=== PATIENT | female | born 1995 | race Caucasian/White ===

== ENCOUNTER 2019-09-16 01:49 | Observation (INO) | payer BC, SELFPAY ==
[2019-09-16 04:26] VITALS: BMI 32.1
--- NOTE | 2019-09-16 04:26 | LDADM ---
This patient, Ira Kamara, was admitted to Labor/Delivery/Recovery 105 on 09/16/19 at 01:49. Plans for labor, pain management and were discussed with patient. Patient/family oriented to hospital policies and general routines including ID bracelet, bed and alarms, visiting hours, pain management, procedures, bathroom and other care routines, personal items, smoking policy, room service/diet and guest tray routines, security routines, and visiting hours. Patient/Family are encouraged to report perceived risks to care and to ask questions if they do not understand what they are told or what they should do. See OBIX for further documentation.
--- NOTE | 2019-09-20 06:57 | PM.DS ---
DS: Diagnosis Admitting Diagnosis Admitting Diagnosis: term DS: Summary Time Spent with Patient Time attestation: Total time spent providing and/or coordinating discharge services: Exam Const: General: no acute distress Eyes: General: appearance normal, both eyes and all related structures Neck: Neck: supple and no JVD Thyroid: thyroid normal Resp: Effort & Inspection: normal respiratory effort Auscultation: clear to auscultation bilaterally Cardio: Rate: regular rate Rhythm: regular rhythm GI: Inspection: non-distended GI Palp: Yes Soft to palpation, No Tenderness to palpation present (GI) and No Guarding due to palpation present (GI) Auscultation: normal bowel sounds : General: Yes bladder normal to palpation External Female Exam: normal external appearance Speculum Exam - Vagina: normal vaginal discharge and No vaginal bleeding Speculum Exam - Cervix: nontender Bimanual exam- vagina & uterus: bladder normal to palpation and No Cervical tenderness present OB/external & speculum: No vaginal bleeding Skin: General skin exam: no rashes or lesions noted Extrem: General: normal to inspection and no edema Psych: Mental Status: mental status grossly normal Affect: normal affect Discharge Plan Discharge Attending physician on discharge: Panchito Nguyen Discharging Clinician: Panchito Nguyen Anticipated Discharge Date/Time: 09/16/19 04:45 Patient Disposition: Home, Self-Care Activity: as tolerated Diet: regular Discharge Instructions: OB ANTEPARTUM DISCHARGE INSTRUCTIONS This information is given to help you properly care for yourself at home after your discharge from the hospital. Follow these instructions until your doctor tells you otherwise. DIET: Eat Three Well Balanced Meals per Day Drink at Least Eight 8-Ounce Glasses of Caffeine-Free Beverages Daily Additional Diet Instructions: ACTIVITY: As Tolerated Additional Activity Instructions: RETURN TO LABOR AND DELIVERY IF YOU HAVE: Any Change In Baby's Normal Movement Pattern Any Leakage of Fluid Contractions 3-5 Minutes Apart with Increasing Intensity Additional Reasons to Return to Labor and Delivery: Contractions may feel like abdominal pain, tightening, cramping, pressure, back ache, or thigh ache. Valuables released to patient or family? N/A Medications from home returned to patient? N/A I Have Received Information Regarding Effective Home Pain Management I Acknowledge Receipt of and Understand the Above Instructions IF YOU HAVE ANY QUESTIONS REGARDING THESE INSTRUCTIONS, PLEASE CALL [phone]. IF PROBLEMS ARISE, CALL YOUR PROVIDER. IF EMERGENCY CARE IS NEEDED, [facility]S EMERGENCY ROOM IS AVAILABLE 24 HOURS A DAY. Patient Instructions: Antibiotic Form Stand Alone Forms: General Discharge Information Follow-up/Referrals: Panchito Nguyen MD [Physician] - Discharge Medications: Continued PNV cmb#95-ferrous fumarate-FA [] 28 mg iron- 800 mcg Tablet 1 tablet PO DAILY RF: 0 No Action hydrocodone-acetaminophen [[place]] 5-325 mg tablet 1 tablet PO Q4H PRN (Reason: pain) Qty: 30 RF: 0 Date of admission: 09/16/19 01:49 Primary Care Provider: UNKNOWN,DOCTOR Admitting Provider: Panchito Nguyen Discharge Date/Time: 09/16/19 04:40 Attending physician on admission: Panchito Nguyen
--- NOTE | 2019-10-17 13:03 | PM.OBTRLD ---
OB - Triage/Final Diagnosis Visit Information Date of evaluation: 10/11/19 Reason for evaluation: threatened labor
--- NOTE | 2019-10-17 13:28 | PM.IMHP ---
H&P: HPI History of Present Illness Chief complaint: contractions Narrative: Ira Acuan is a 24 year old female admitted at term in active labor. is uncomplicated. Review of Systems Review of Systems: All systems reviewed & are unremarkable except as noted in HPI and below PMFSH Family History Family History Mother Hypothyroidism Social History Social History Smoking packs per day: 0.5 Smoking cigarettes per day: 10.0 Years smoked: 6 Smoking pack-years: 3.00 Smoking status: Former smoker Tobacco type: cigarettes Substance use: never Gender identity (if verbalized by the patient): Female Spiritual care concerns: No Meds Home Medications and Allergies Home Medications Medication Instructions Recorded Confirmed Type PNV cmb#95-ferrous fumarate-FA 1 tablet PO DAILY 08/07/19 09/16/19 History [] hydrocodone-acetaminophen [[place]] 1 tablet PO Q4H PRN #30 tablet 09/17/19 Rx Allergies Allergy/AdvReac Type Severity Reaction Status Date / Time No Known Allergies Allergy Unknown Unverified 01/19/19 22:23 Exam Const: General: no acute distress Eyes: General: appearance normal, both eyes and all related structures Neck: Neck: supple and no JVD Thyroid: thyroid normal Resp: Effort & Inspection: normal respiratory effort Auscultation: clear to auscultation bilaterally Cardio: Rate: regular rate Rhythm: regular rhythm GI: Inspection: non-distended GI Palp: Yes Soft to palpation, No Tenderness to palpation present (GI) and No Guarding due to palpation present (GI) Auscultation: normal bowel sounds : General: Yes bladder normal to palpation External Female Exam: normal external appearance Speculum Exam - Vagina: normal vaginal discharge and No vaginal bleeding Speculum Exam - Cervix: nontender Bimanual exam- vagina & uterus: bladder normal to palpation and No Cervical tenderness present OB/external & speculum: No vaginal bleeding Skin: General skin exam: no rashes or lesions noted Extrem: General: normal to inspection and no edema Psych: Mental Status: mental status grossly normal Affect: normal affect Assessment and Plan Additional Plan Impression: Term in active labor Plan: Spontaneous vaginal is expected
== END 2019-09-16 04:40 | disposition home or self-care (01) ==
PROVIDERS: Admitting Provider Obstetrics & Gynecology; Visit Provider Obstetrics & Gynecology
DX: O47.1 False labor at or after 37 completed weeks of gestation (principal); Z3A.40 40 weeks gestation of pregnancy
CPT/HCPCS: G0378; G0379

== ENCOUNTER 2019-09-16 18:28 | Inpatient (IN) | payer BC, SELFPAY ==
[2019-09-16] VITALS (67 sets, daily range): BP systolic 91–144; BP diastolic 42–104; PULSE 64–105; TEMP 36.6–37.3; O2SAT 88–100; BMI 32.3
--- NOTE | 2019-09-16 18:28 | LDADM ---
This patient, Ira Kamara, was admitted to Labor/Delivery/Recovery 106 on 09/16/19 at 18:28. Plans for labor, pain management and were discussed with patient. Patient/family oriented to hospital policies and general routines including ID bracelet, bed and alarms, visiting hours, pain management, procedures, bathroom and other care routines, personal items, smoking policy, room service/diet and guest tray routines, security routines, and visiting hours. Patient/Family are encouraged to report perceived risks to care and to ask questions if they do not understand what they are told or what they should do. See OBIX for further documentation.
[2019-09-16 19:05] LABS: Basophils Percent Auto 0.3 % (0.2-1.2); Eosinophils Absolute Auto 0.2 K/mm3 (0-0.3); Eosinophils Percent Auto 1.5 % (0-4.4); Hematocrit 35.3 % (37.0-47.0); Hemoglobin 11.5 g/dL (12.0-15.0); Immature Granulocyte Absolute 0.28 K/mm3 (0.00-0.031); Lymphocytes Absolute Auto 2.87 K/mm3 (0.9-3.2); Mean Corpuscular HGB Conc 32.6 g/dl (32-36); Mean Corpuscular Hemoglobin 29.1 pg (26-34); Mean Corpuscular Volume 89.4 fl (80-100); Mean Platelet Volume 11.3 fl (7.4-10.4); Monocytes Absolute Auto 1.3 K/mm3 (0.1-0.6); Monocytes Percent Auto 8.9 % (2.6-8.5); Neutrophils Absolute Auto 9.7 K/mm3 (1.3-6.7); Neutrophils Percent Auto 67.3 % (45.5-73.1); Platelet Count Result 222 k/mm3 (150-375); Red Blood Count 3.95 M/mm3 (4.2-5.4); Red Cell Distribution Width 14.2 % (11.5-14.5); White Blood Count 14.3 K/mm3 (4.5-10.0)
[2019-09-16] MEDS: LACTATED RINGERS 1,000 ML 999 ML IV CONT (20:43)
[2019-09-16] MEDS: LACTATED RINGERS 1,000 ML 125 ML IV CONT ×2 (21:02→23:42)
--- NOTE | 2019-09-16 21:03 | P.PNAN_ITS ---
Anes - Eval Pre Procedure Procedure: Labor epidural Date/Time: 09/16/19 21:03 Surgeon: Jam Preop Diagnosis: ABD pain with contractions Pre Op Diagnosis: leaking Patient Data Age: 24 Gender: F Height: 5 ft 1 in Weight: 77.5 kg Last Vital Signs Temp 98.9 F 09/16/19 20:48 Pulse 85 09/16/19 21:01 BP 130/104 H 09/16/19 21:01 Pulse Ox 97 09/16/19 21:01 Allergies Allergy/AdvReac Type Severity Reaction Status Date / Time No Known Allergies Allergy Unknown Unverified 01/19/19 22:23 Home Medications Medication Instructions Recorded Confirmed Type PNV cmb#95-ferrous fumarate-FA 1 tablet PO DAILY 08/07/19 09/16/19 History [] Laboratory Tests 09/16/19 09/16/19 09/16/19 19:00 19:00 19:00 WBC 14.3 K/mm3 H K/mm3 (4.5-10.0) RBC 3.95 M/mm3 L M/mm3 (4.2-5.4) Hgb 11.5 g/dL L g/dL (12.0-15.0) Hct 35.3 % L % (37.0-47.0) MCV 89.4 fl fl (80-100) MCH 29.1 pg pg (26-34) MCHC 32.6 g/dl g/dl (32-36) RDW 14.2 % % (11.5-14.5) Plt Count 222 k/mm3 k/mm3 (150-375) MPV 11.3 fl H fl (7.4-10.4) Immature Gran % (Auto) 2.0 % H % (0-0.5) Neut % (Auto) 67.3 % % (45.5-73.1) Lymph % (Auto) 20.0 % % (18.3-44.2) [place] % (Auto) 8.9 % H % (2.6-8.5) Eos % (Auto) 1.5 % % (0-4.4) Baso % (Auto) 0.3 % % (0.2-1.2) Lymph # (Auto) 2.87 K/mm3 K/mm3 (0.9-3.2) [place] # (Auto) 1.3 K/mm3 H K/mm3 (0.1-0.6) Eos # (Auto) 0.2 K/mm3 K/mm3 (0-0.3) Baso # (Auto) 0.0 K/mm3 K/mm3 (0.0-0.1) Abs Immat Gran (auto) 0.28 K/mm3 H K/mm3 (0.00-0.031) Absolute Neuts (auto) 9.7 K/mm3 H K/mm3 (1.3-6.7) Absolute Nucleated RBC 0.0 K/mm3 K/mm3 (0.0-0.012) Nucleated RBC % 0.0 % % (0.0-0.2) RPR Pending Blood Type O Positive Antibody Screen Negative Patient hx anesthesia problems: none Family hx anesthesia problems: none PMFSH Family History Family History Mother Hypothyroidism Social History Social History Smoking packs per day: 0.5 Smoking cigarettes per day: 10.0 Years smoked: 6 Smoking pack-years: 3.00 Smoking status: Former smoker Tobacco type: cigarettes Substance use: never Gender identity (if verbalized by the patient): Female Spiritual care concerns: No Exam Day of Procedure 09/16/19 21:03
[2019-09-17] VITALS (200 sets, daily range): BP systolic 76–147; BP diastolic 34–111; PULSE 56–275; RESP 16–18; TEMP 36.7–37.6; O2SAT 95–100
--- NOTE | 2019-09-17 06:27 | P.HPUP_ITS ---
History and Physical Update Update Date/Time: 09/17/19 06:27 24 yo at 40w4d who presented after SROM at home. She denies vaginal bleeding and endorses good movement. She has had regular contractions throughout the day. Her is complicated by rubella non-immune status an d tobacco use. History and Physical has been reviewed, including an updated exam of the patient. There are NO changes in the patient's condition. Risks, benefits, and alternatives have been discussed and questions answered. Patient agrees to proceed with procedure. A/P: 24 yo G1 at 40w4d with SROM admit to L&D routine admission orders Rh+ GBS neg FHT 130 bpm, mod dominick, variable decels, category 1 expectant management
--- NOTE | 2019-09-17 07:08 | P.PNOB_ITS ---
OB - PN: Subj Subjective Date/time seen: 09/17/19 07:08 Interval history: cervix anterior lip. heart tones are reassuring OB - PN: Obj Data Labs CBC & Chem 7: 09/16/19 19:00 Labs: Laboratory Results - last 24 hr 09/16/19 09/16/19 19:00 19:00 WBC 14.3 H RBC 3.95 L Hgb 11.5 L Hct 35.3 L MCV 89.4 MCH 29.1 MCHC 32.6 RDW 14.2 Plt Count 222 MPV 11.3 H Immature Gran % (Auto) 2.0 H Neut % (Auto) 67.3 Lymph % (Auto) 20.0 [place] % (Auto) 8.9 H Eos % (Auto) 1.5 Baso % (Auto) 0.3 Lymph # (Auto) 2.87 [place] # (Auto) 1.3 H Eos # (Auto) 0.2 Baso # (Auto) 0.0 Abs Immat Gran (auto) 0.28 H Absolute Neuts (auto) 9.7 H Absolute Nucleated RBC 0.0 Nucleated RBC % 0.0 Blood Type O Positive Antibody Screen Negative OB - PN A/P Time Spent With Patient Time: Total time spent is greater than 50% in coordination of care (as documented) at patient's floor/unit and/or counseling patient:
--- NOTE | 2019-09-17 08:43 | P.PNOB_ITS ---
OB - PN: Subj Subjective Date/time seen: 09/17/19 08:43 Interval history: complete/pushing fhts reassuring OB - PN: Obj Data Labs CBC & Chem 7: 09/16/19 19:00 Labs: Laboratory Results - last 24 hr 09/16/19 09/16/19 19:00 19:00 WBC 14.3 H RBC 3.95 L Hgb 11.5 L Hct 35.3 L MCV 89.4 MCH 29.1 MCHC 32.6 RDW 14.2 Plt Count 222 MPV 11.3 H Immature Gran % (Auto) 2.0 H Neut % (Auto) 67.3 Lymph % (Auto) 20.0 [place] % (Auto) 8.9 H Eos % (Auto) 1.5 Baso % (Auto) 0.3 Lymph # (Auto) 2.87 [place] # (Auto) 1.3 H Eos # (Auto) 0.2 Baso # (Auto) 0.0 Abs Immat Gran (auto) 0.28 H Absolute Neuts (auto) 9.7 H Absolute Nucleated RBC 0.0 Nucleated RBC % 0.0 Blood Type O Positive Antibody Screen Negative OB - PN A/P Time Spent With Patient Time: Total time spent is greater than 50% in coordination of care (as documented) at patient's floor/unit and/or counseling patient:
--- NOTE | 2019-09-17 09:37 | P.PNOB_ITS ---
OB - PN: Subj Subjective Date/time seen: 09/17/19 09:37 Interval history: complete/pushing fhts reassuring try another 35-40 mins section if no change OB - PN: Obj Data Labs CBC & Chem 7: 09/16/19 19:00 Labs: Laboratory Results - last 24 hr 09/16/19 09/16/19 19:00 19:00 WBC 14.3 H RBC 3.95 L Hgb 11.5 L Hct 35.3 L MCV 89.4 MCH 29.1 MCHC 32.6 RDW 14.2 Plt Count 222 MPV 11.3 H Immature Gran % (Auto) 2.0 H Neut % (Auto) 67.3 Lymph % (Auto) 20.0 [place] % (Auto) 8.9 H Eos % (Auto) 1.5 Baso % (Auto) 0.3 Lymph # (Auto) 2.87 [place] # (Auto) 1.3 H Eos # (Auto) 0.2 Baso # (Auto) 0.0 Abs Immat Gran (auto) 0.28 H Absolute Neuts (auto) 9.7 H Absolute Nucleated RBC 0.0 Nucleated RBC % 0.0 Blood Type O Positive Antibody Screen Negative OB - PN A/P Time Spent With Patient Time: Total time spent is greater than 50% in coordination of care (as documented) at patient's floor/unit and/or counseling patient:
[2019-09-17 10:13] LABS: Rapid Plasma Reagin Non-Reactive (NonReactive)
--- NOTE | 2019-09-17 10:30 | PM.OBPNVD ---
OB - PN: Subj Subjective Date/time seen: 09/17/19 10:30 Interval history: still no change offered section risks/benefits given OB - PN: Obj Data Labs CBC & Chem 7: 09/16/19 19:00 Labs: Laboratory Results - last 24 hr 09/16/19 09/16/19 09/16/19 19:00 19:00 19:00 WBC 14.3 H RBC 3.95 L Hgb 11.5 L Hct 35.3 L MCV 89.4 MCH 29.1 MCHC 32.6 RDW 14.2 Plt Count 222 MPV 11.3 H Immature Gran % (Auto) 2.0 H Neut % (Auto) 67.3 Lymph % (Auto) 20.0 [place] % (Auto) 8.9 H Eos % (Auto) 1.5 Baso % (Auto) 0.3 Lymph # (Auto) 2.87 [place] # (Auto) 1.3 H Eos # (Auto) 0.2 Baso # (Auto) 0.0 Abs Immat Gran (auto) 0.28 H Absolute Neuts (auto) 9.7 H Absolute Nucleated RBC 0.0 Nucleated RBC % 0.0 RPR Non-reactive Blood Type O Positive Antibody Screen Negative OB - PN A/P Time Spent With Patient Time: Total time spent is greater than 50% in coordination of care (as documented) at patient's floor/unit and/or counseling patient:
[2019-09-17] MEDS: ceFAZolin 2 GM/D5W 50 ML 2 GM/50 ML BAG IVPB (10:41)
--- NOTE | 2019-09-17 11:31 | PM.PROC ---
Procedure Note - Detailed Date of procedure: 09/17/19 Pre-op diagnosis: leaking Surgeon: Panchito Nguyen MD Postop diagnosis: Failure to descend Procedure: Primary low-transverse section EBL: 360cc Findings: 6 lb 4 oz male Apgars 9 and 9 at 1 and 5 minutes respectively Complications: None Anesthesia: Epidural Description of procedure: After obtaining informed consent the patient was taken to the back. She was prepped and draped in the normal sterile fashion and placed in the supine position. Under excellent spinal epidural anesthesia the abdomen was entered in a Pfannenstiel incision and progressive layers to the fascia. The fascia was incised in upward outward fashion bilaterally. The underlying muscles were sharply dissected. The parietal peritoneum elevated by Olivia clamps and entered by sharp dissection superiorly and inferiorly to the dome of the bladder. A bladder blade was placed. A bladder flap was formed. The bladder blade was replaced. A low transverse incision made in the head delivered in the AIDE position. Anterior and posterior shoulder then delivered spontaneously. Cord was clamped x2 and cut. passed off the table given Apgars of 9 [id number] and 9 [id number] respectively. Placenta was delivered intact manually. Uterus delivered from the abdomen and wrapped in a moist towel. After assuring no membranes or debris made in the uterus. The uterus was closed with continuous running 0 Vicryl from lateral edge to lateral edge followed by a 2nd imbricating 0 Vicryl from lateral edge to lateral edge. Hemostasis was assured. The ovaries and tubes appeared within normal limits. The uterus was returned to the abdomen. The hysterotomy incision was inspected 1 last time and noted to be hemostatic. The laps removed and accounted for. The fascia closed with continuous running 0 Vicryl from lateral edge to midline bilaterally. The skin was closed with 4 Monocryl glue. Estimated blood loss was 360cc. All sponge, needle, instrument counts were correct. There were no immediate complications
[2019-09-17] MEDS: KETOROLAC 30 MG/ML VIAL (*BKC) IV PUSH (15:07)
--- NOTE | 2019-09-17 16:17 | PC.NURSE ---
Patient transferred to post room #290 via stretcher. Oriented to unit, room, information board, rooming in, admission packet and security measures. Patient verbalizes understanding.
[2019-09-17] MEDS: IBUPROFEN 600 MG TABLET PO (23:09)
[2019-09-18] VITALS: BP 105/60; PULSE 90; RESP 16; TEMP 36.8; O2SAT 98
[2019-09-18 04:15] VITALS: BP 107/71; PULSE 66; RESP 16; TEMP 36.7; O2SAT 98
[2019-09-18 06:20] LABS: Basophils Percent Auto 0.2 % (0.2-1.2); Eosinophils Absolute Auto 0.2 K/mm3 (0-0.3); Hematocrit 27.9 % (37.0-47.0); Hemoglobin 9.2 g/dL (12.0-15.0); Immature Granulocyte Absolute 0.25 K/mm3 (0.00-0.031); Immature Granulocyte Percent A 1.4 % (0-0.5); Lymphocytes Absolute Auto 2.79 K/mm3 (0.9-3.2); Lymphocytes Percent Auto 15.2 % (18.3-44.2); Mean Corpuscular Hemoglobin 29.7 pg (26-34); Mean Platelet Volume 11.5 fl (7.4-10.4); Monocytes Absolute Auto 1.3 K/mm3 (0.1-0.6); Neutrophils Absolute Auto 13.8 K/mm3 (1.3-6.7); Neutrophils Percent Auto 75.2 % (45.5-73.1); Platelet Count Result 170 k/mm3 (150-375); Red Cell Distribution Width 14.6 % (11.5-14.5); White Blood Count 18.3 K/mm3 (4.5-10.0)
[2019-09-18 07:40] VITALS: BP 114/69; PULSE 92; RESP 16; TEMP 36.4; O2SAT 99
[2019-09-18 07:45] VITALS: PULSE 92; RESP 16; O2SAT 99
--- NOTE | 2019-09-18 08:05 | WPDANLDNPN2 ---
Anes-Prog Note L&D-Neuraxial Date/Time: 09/18/19 08:05 Neuraxial medications: epidural PF morphine Opiod-related complaints: none Patient feedback: Patient satisfied with post-operative pain management.
--- NOTE | 2019-09-18 08:06 | WPDANLDNPN2 ---
Anes-Prog Note L&D-Neuraxial Date/Time: 09/18/19 08:06 Neuraxial medications: epidural PF morphine Opiod-related complaints: none Patient feedback: Patient satisfied with post-operative pain management.
[2019-09-18] MEDS: IBUPROFEN 600 MG TABLET PO ×2 (09:55→17:18)
[2019-09-18] MEDS: DOCUSATE SODIUM 100 MG CAPSULE PO ×2 (09:55→17:17)
[2019-09-18] MEDS: POLYSACCHARIDE IRON COMPLEX 150 MG CAPSULE PO ×2 (11:11→17:17)
[2019-09-18] MEDS: TETANUS,DIPHTHERIA,AC PERTUSSIS ADULT 0.5 ML (ADACEL) IM (17:20)
[2019-09-18 20:17] VITALS: BP 117/57; PULSE 90; RESP 18; TEMP 37.1
[2019-09-19] MEDS: IBUPROFEN 600 MG TABLET PO ×3 (04:06→18:09)
[2019-09-19 06:40] VITALS: BP 117/63; PULSE 73; RESP 18; TEMP 37.3
--- NOTE | 2019-09-19 06:51 | P.PNOB_ITS ---
OB - PN: Subj Subjective Date/time seen: 09/19/19 06:51 Patient comments: no complaints and pain well controlled baby status: doing well and nursing well OB - PN: Obj Data Labs CBC & Chem 7: 09/18/19 04:24 OB - PN A/P Plan day: 2 Plan: routine care Time Spent With Patient Time: Total time spent is greater than 50% in coordination of care (as katie kelly) at patient's floor/unit and/or counseling patient: Time with patient: less than 15 minutes Review of Systems Review of Systems: All systems reviewed & are unremarkable except as noted in HPI and below Exam Const: General: no acute distress Eyes: General: appearance normal, both eyes and all related structures Neck: Neck: supple and no JVD Thyroid: thyroid normal Resp: Effort & Inspection: normal respiratory effort Auscultation: clear to auscultation bilaterally Cardio: Rate: regular rate Rhythm: regular rhythm GI: Inspection: non-distended GI Palp: Yes Soft to palpation, No Tenderness to palpation present (GI) and No Guarding due to palpation present (GI) Auscultation: normal bowel sounds : General: Yes bladder normal to palpation External Female Exam: normal external appearance Speculum Exam - Vagina: normal vaginal discharge and No vaginal bleeding Speculum Exam - Cervix: nontender Bimanual exam- vagina & uterus: bladder normal to palpation and No Cervical tenderness present OB/external & speculum: No vaginal bleeding Skin: General skin exam: no rashes or lesions noted Extrem: General: normal to inspection and no edema Psych: Mental Status: mental status grossly normal Affect: normal affect
[2019-09-19] MEDS: POLYSACCHARIDE IRON COMPLEX 150 MG CAPSULE PO (07:49)
[2019-09-19] MEDS: MULTIVIT/MIN/PREN/FOL AC/IRON TABLET 1 TAB PO (07:49)
[2019-09-19] MEDS: DOCUSATE SODIUM 100 MG CAPSULE PO (07:49)
[2019-09-19] MEDS: MEASLES,MUMPS,RUBELLA VACCINE 0.5 ML VIAL (07:50)
[2019-09-19 21:08] VITALS: BP 118/78; PULSE 84; RESP 17; TEMP 36.8
[2019-09-20] MEDS: IBUPROFEN 600 MG TABLET PO ×2 (01:14→09:40)
--- NOTE | 2019-09-20 06:39 | PM.OBPNVD ---
OB - PN: Subj Subjective Date/time seen: 09/20/19 06:39 Patient comments: no complaints and pain well controlled baby status: doing well OB - PN: Obj Data Labs CBC & Chem 7: 09/18/19 04:24 OB - PN A/P Plan day: 3 Plan: routine care, discharge home and follow up 6 weeks (4 weeks) Time Spent With Patient Time: Total time spent is greater than 50% in coordination of care (as documented) at patient's floor/unit and/or counseling patient: Time with patient: less than 15 minutes Review of Systems Review of Systems: All systems reviewed & are unremarkable except as noted in HPI and below Exam Const: General: no acute distress Eyes: General: appearance normal, both eyes and all related structures Neck: Neck: supple and no JVD Thyroid: thyroid normal Resp: Effort & Inspection: normal respiratory effort Auscultation: clear to auscultation bilaterally Cardio: Rate: regular rate Rhythm: regular rhythm GI: Inspection: normal to inspection and incision (cdi) Percussion: Yes normal to percussion Auscultation: normal bowel sounds : General: Yes bladder normal to palpation External Female Exam: normal external appearance Speculum Exam - Vagina: normal vaginal discharge and No vaginal bleeding Speculum Exam - Cervix: nontender Bimanual exam- vagina & uterus: bladder normal to palpation and No Cervical tenderness present OB/external & speculum: No vaginal bleeding Skin: General skin exam: no rashes or lesions noted Extrem: General: normal to inspection and no edema Psych: Mental Status: mental status grossly normal Affect: normal affect
[2019-09-20 08:00] VITALS: BP 120/65; PULSE 69; RESP 18; TEMP 36.7; O2SAT 100
[2019-09-20] MEDS: POLYSACCHARIDE IRON COMPLEX 150 MG CAPSULE PO (09:39)
[2019-09-20] MEDS: SIMETHICONE 80 MG TAB.CHEW PO (09:40)
[2019-09-20] MEDS: DOCUSATE SODIUM 100 MG CAPSULE PO (09:40)
--- NOTE | 2019-09-20 09:58 | PC.NURSE ---
Self care and infant care discharge instructions given including follow up visit date and time. Pt verbalized understanding. No questions or concerns voiced. Very pleasant and cooperative. Pt. refused flu vaccine when offerred. States she will get it later. at side.
[2019-09-21 09:17] VITALS: BP 125/80; PULSE 74; RESP 18; TEMP 36.7
--- NOTE | 2019-10-17 06:58 | PM.DS ---
DS: Diagnosis Admitting Diagnosis Admitting Diagnosis: Encounter for supervision of normal , unspecified, third trimester term DS: Summary Time Spent with Patient Time attestation: Total time spent providing and/or coordinating discharge services: Exam Const: General: no acute distress Eyes: General: appearance normal, both eyes and all related structures Neck: Neck: supple and no JVD Thyroid: thyroid normal Resp: Effort & Inspection: normal respiratory effort Auscultation: clear to auscultation bilaterally Cardio: Rate: regular rate Rhythm: regular rhythm GI: Inspection: non-distended GI Palp: Yes Soft to palpation, No Tenderness to palpation present (GI) and No Guarding due to palpation present (GI) Auscultation: normal bowel sounds : General: Yes bladder normal to palpation External Female Exam: normal external appearance Speculum Exam - Vagina: normal vaginal discharge and No vaginal bleeding Speculum Exam - Cervix: nontender Bimanual exam- vagina & uterus: bladder normal to palpation and No Cervical tenderness present OB/external & speculum: No vaginal bleeding Skin: General skin exam: no rashes or lesions noted Extrem: General: normal to inspection and no edema Psych: Mental Status: mental status grossly normal Affect: normal affect Discharge Plan Discharge Attending physician on discharge: Panchito Nguyen Discharging Clinician: Panchito Nguyen Patient Disposition: Home, Self-Care Activity: may shower, no straining, may drive after 2 weeks and pelvic rest Diet: heart healthy Wound Care Instructions: follow printed instructions Discharge Instructions: Education: Mom and Baby Guide Given to: Mother Follow-Up: Call your delivering provider's office for an appointment to be seen in: 1 Week Mom and baby should come to the [facility] for the follow-up appointment. Appointment Date/Time: September 21, 2019 at 9:00 am What to expect at your follow-up visit: Blood Pressure Check Physical Assessment Call [phone] if you are unable to keep your appointment time. BREAST CARE: 1. Wear a snug supportive bra. Bottle Feeding: A. May apply ice packs ABDOMINAL INCISION: (if applicable) 1. Allow incision to air dry 2. Do NOT use lotions for powders on your incision 3. When showering, allow soap and water to run over the incision, but do not wash incision PERINEAL CARE: 1. Until bleeding stops, use your emy bottle after urinating 2. Change your pad frequently throughout the day 4. No tub baths until seen by your physician - You may shower ACTIVITY: 1. Rest as much as possible. 2. Do not exercise or lift anything heavier than your baby (such as laundry or other children.) 3. Avoid stairs or driving as much as possible. 4. Do not put anything into the vagina. No douching, tampons, or sexual activity until seen by physician. NOTIFY PHYSICIAN IF YOU HAVE ANY QUESTIONS OR IF ANY OF THE FOLLOWING SYMPTOMS OCCUR: 1. If your incision becomes red, swollen, or more painful than what you have experienced in the hospital. 2. If your vaginal bleeding becomes foul smelling. 3. If your vaginal bleeding becomes more heavy than a period or if your bleeding changes from pink to bright red. However, you may pass an occasional walnut-sized clot once or twice for the first week . 4. If you experience a sharp, shooting pain in you calves. 5. If you discover a hard, reddened area on your breast or if you experience flu-like symptoms. DIET: 1. Eat regular, well-balanced meals. 2. Drink plenty of fluids daily. If , drink to thirst. Stand Alone Forms: General Discharge Information Follow-up/Referrals: Panchito Nguyen MD [Physician] - Discharge Medications: New hydrocodone-acetaminophen [[place]] 5-325 mg tablet 1 tablet PO Q4H PRN (Reason: pain) Qty: 30 RF: 0 Continued PNV cmb
--- NOTE | 2019-10-17 13:30 | HP_ITS ---
This report was moved to the correct visit, [id number] on September 18, 2019. Original report was signed by Dr. Nguyen on October 16, 1329. H&P: HPI History of Present Illness Chief complaint: contractions Narrative: Ira Acuna is a 24 year old female admitted at term in active labor. is uncomplicated. Review of Systems Review of Systems: All systems reviewed & are unremarkable except as noted in HPI and below PMFSH Family History Family History Mother Hypothyroidism Social History Social History Smoking packs per day: 0.5 Smoking cigarettes per day: 10.0 Years smoked: 6 Smoking pack-years: 3.00 Smoking status: Former smoker Tobacco type: cigarettes Substance use: never Gender identity (if verbalized by the patient): Female Spiritual care concerns: No Meds Home Medications and Allergies Home Medications Medication Instructions Recorded Confirmed Type PNV cmb#95-ferrous fumarate-FA 1 tablet PO DAILY 08/07/19 09/16/19 History [] hydrocodone-acetaminophen [[place]] 1 tablet PO Q4H PRN #30 tablet 09/17/19 Rx Allergies Allergy/AdvReac Type Severity Reaction Status Date / Time No Known Allergies Allergy Unknown Unverified 01/19/19 22:23 Exam Const: General: no acute distress Eyes: General: appearance normal, both eyes and all related structures Neck: Neck: supple and no JVD Thyroid: thyroid normal Resp: Effort & Inspection: normal respiratory effort Auscultation: clear to auscultation bilaterally Cardio: Rate: regular rate Rhythm: regular rhythm GI: Inspection: non-distended GI Palp: Yes Soft to palpation, No Tenderness to palpation present (GI) and No Guarding due to palpation present (GI) Auscultation: normal bowel sounds : General: Yes bladder normal to palpation External Female Exam: normal external appearance Speculum Exam - Vagina: normal vaginal discharge and No vaginal bleeding Speculum Exam - Cervix: nontender Bimanual exam- vagina & uterus: bladder normal to palpation and No Cervical tenderness present OB/external & speculum: No vaginal bleeding Skin: General skin exam: no rashes or lesions noted Extrem: General: normal to inspection and no edema Psych: Mental Status: mental status grossly normal Affect: normal affect Assessment and Plan Additional Plan Impression: Term in active labor Plan: Spontaneous vaginal is expected Report Initialized date/time: Panchito Landis MD 10/17/191329 Electronically signed by: Panchito Landis MD 10/17/191329 [facility]
== END 2019-09-20 10:41 | disposition home or self-care (01) | DRG 788 ==
LOC: ANHLDR 18:44 → ANHOB2 09-17 13:50
PROVIDERS: Admitting Provider Obstetrics & Gynecology; Visit Provider Obstetrics & Gynecology
PROC: 10D00Z1 Extraction of Products of Conception, Low, Open Approach (ICD-10-PCS; CPT 59514; principal; 2019-09-17 11:00)
DX: O99.334 Smoking (tobacco) complicating childbirth (principal); Z37.0 Single live birth; Z3A.40 40 weeks gestation of pregnancy; F17.210 Nicotine dependence, cigarettes, uncomplicated; O36.8330 Maternal care for abnormalities of the fetal heart rate or rhythm, third trimester, not applicable or unspecified; O32.4XX0 Maternal care for high head at term, not applicable or unspecified
CPT/HCPCS: 36415; 85025; 86592; 86850; 86900; 86901; 90710; 90715; A9270; J0690; J1200; J1885; J2274; J2590; J2795; J3010; J7120

== ENCOUNTER 2021-05-23 12:09 | Emergency (ER) | payer BC, MEDICAID, SELFPAY ==
[2021-05-23 12:15] VITALS: BP 125/71; PULSE 62; RESP 18; TEMP 36.9; O2SAT 100
--- NOTE | 2021-05-23 15:20 | PC.NURSE ---
At 1502 and 1518 no answer. Pt. has left without notifying ED staff.
== END 2021-05-23 15:20 | disposition left against medical advice (07) ==
DX: Z53.21 Procedure and treatment not carried out due to patient leaving prior to being seen by health care provider (principal)
CPT/HCPCS: 99199

== ENCOUNTER 2021-05-23 20:55 | Emergency (ER) | payer MEDICAID, SELFPAY ==
[2021-05-23] VITALS (9 sets, daily range): BP systolic 118–146; BP diastolic 66–103; PULSE 56–78; RESP 14–24; TEMP 36.7; O2SAT 96–100
--- NOTE | ~2021-05-23 | CT_ITS ---
EXAMINATION: CT abdomen pelvis w con DATE: 05/23/2021 23:04 INDICATION: Left lower quadrant abdominal pain TECHNIQUE: Computed tomography (CT) of the abdomen and pelvis was performed with 100 cc Omnipaque 350 intravenous contrast. Automated exposure control and iterative reconstruction technique were employe d. Exam dose: 558.16 mGy-cm total exam DLP. COMPARISON: 10/25/2016 CT abdomen pelvis FINDINGS: No infiltrate or consolidation in the included lower lung zones. Normal heart size. No emy cardial or pleural effusion. The liver, gallbladder, bile ducts, spleen, pancreas, pancreatic duct, and adrenal glands are unremar kable. Approximately 2 mm nonobstructing right renal calculus. The urinary bladder, uterus and adnexal areas are unremarkable. Normal caliber of the abdominal aorta. No intraperitoneal or retroperitoneal or pelvic mass lesion or adenopathy or ascites. Normal appendix. No bowel obstruction, bowel wall thickening, pneumatosis or intraperitoneal free air . Small fat-containing umbilical hernia. Included skeletal structures are unremarkable. IMPRESSION: 2 mm nonobstructing right renal calculus Reviewed, dictated and finalized at [facility] Reviewed, dictated and finalized at [facility].
[2021-05-23 21:16] LABS: Basophils Absolute Auto 0.1 K/mm3 (0.0-0.1); Basophils Percent Auto 0.4 % (0.2-1.2); Eosinophils Absolute Auto 0.6 K/mm3 (0-0.3); Eosinophils Percent Auto 4.8 % (0-4.4); Hematocrit 38.6 % (37.0-47.0); Hemoglobin 12.8 g/dL (12.0-15.0); Immature Granulocyte Absolute 0.04 K/mm3 (0.00-0.031); Immature Granulocyte Percent A 0.3 % (0-0.5); Lymphocytes Absolute Auto 5.49 K/mm3 (0.9-3.2); Mean Corpuscular HGB Conc 33.2 g/dl (32-36); Mean Corpuscular Volume 90.6 fl (80-100); Mean Platelet Volume 9.8 fl (7.4-10.4); Monocytes Percent Auto 7.8 % (2.6-8.5); Neutrophils Absolute Auto 5.3 K/mm3 (1.3-6.7); Neutrophils Percent Auto 42.7 % (45.5-73.1); Platelet Count Result 319 k/mm3 (150-375); Red Blood Count 4.26 M/mm3 (4.2-5.4); Red Cell Distribution Width 13.2 % (11.5-14.5); White Blood Count 12.5 K/mm3 (4.5-10.0)
[2021-05-23 21:26] LABS: Alanine Aminotransferase 22 U/L (4-35); Albumin Level 4.8 g/dL (3.5-5.1); Alkaline Phosphatase 73 U/L (38-126); Anion Gap 11 mmol/L (8-16); Aspartate Amino Transferase 30 U/L (14-36); Bilirubin,Total 0.2 mg/dL (0.2-1.3); Blood Urea Nitrogen 11 mg/dL (7-17); Calcium 9.7 mg/dL (8.4-10.2); Carbon Dioxide 25 mmol/L (22-30); Chloride 104 mmol/L (98-107); Estimated Glomerular Filt Rate > 60; Glucose 95 mg/dL (65-110); Lipase 150 U/L (23-300); Potassium 3.9 mmol/L (3.4-5.0); Sodium 140 mmol/L (137-145)
[2021-05-23 21:31] LABS: Add Urine Microscopic? YES; Appearance Urine Clear (Clear); Bilirubin Urine Negative (Negative); Blood Urine Negative (Negative); Color Urine Yellow (Yellow); Glucose Urine UA Negative (Negative); Ketones Urine Negative (Negative); Leukocyte Esterase Ur Negative LEU/UL (Negative); Nitrate Urine Negative (Negative); Protein Urine Negative (Negative); RBC Urine 0-2 /hpf (0-2); Specific Grav Ur 1.016 (1.001-1.035); Squamous Epithelial Cell Urine Few /hpf (Few); Urobilinogen Urine Negative mg/dL (<2.0); WBC Urine 0-3 /hpf
[2021-05-23] MEDS: ONDANSETRON INJ 4 MG/2 ML VIAL IV PUSH (22:43)
[2021-05-23] MEDS: KETOROLAC 30 MG/ML VIAL (*BKC) IV PUSH (22:43)
[2021-05-23] MEDS: SODIUM CHLORIDE 0.9% IV 1,000 ML 999 ML IV CONT (22:43)
--- NOTE | 2021-05-24 00:05 | ED.GENADULT ---
HPI - General Adult General Chief complaint: Abdominal Pain Stated complaint: Abdominal pain Time Seen by Provider: 05/23/21 21:53 History of Present Illness HPI narrative: Patient is a 26-year-old female presents the emergency department chief complaint of abdominal pain. Patient reports for the last several days has been having pain located in the left lower quadrant patient states is not improved by anything reports is worsened with movement patient denies diarrhea reports subtle bit of nausea with this but no vomiting. Patient reports that the pain is an aching Related Data Home Medications Medication Instructions Recorded Confirmed escitalopram oxalate 10 mg PO DAILY 05/23/21 Allergies Allergy/AdvReac Type Severity Reaction Status Date / Time No Known Allergies Allergy Unknown Verified 05/23/21 21:55 Review of Systems Review of Systems: A 10 system review of systems was completed on the patient and is negative except for what is stated in the HPI. Nursing and ancillary documentation was reviewed. [facility] Family History Family History Mother Hypothyroidism Social History Social History Smoking packs per day: 0.5 Smoking cigarettes per day: 10.0 Years smoked: 6 Smoking pack-years: 3.00 Smoking status: Former smoker Tobacco type: cigarettes Substance use: never Gender identity (if verbalized by the patient): Female Spiritual care concerns: No Exam Narrative: GENERAL: Well-appearing, well-nourished, and in no acute distress. HEAD: Normocephalic, atraumatic. EYES: PERRLA and EOMI. ENT: Nares clear, no rhinorrhea or epistaxis. Mucous membranes moist. NECK: Supple. CHEST: Clear to auscultation. No respiratory distress. HEART: Regular rate and rhythm. No murmur heard. Normal peripheral pulses. ABDOMEN: Soft, nontender, nondistended, normal active bowel sounds. EXTREMITIES: Normal range of motion. No edema. SKIN: Warm, dry, no rash. NEURO: No focal deficits. Alert and oriented x3. PSYCH: Normal mood and affect. Course Course Emergency Course: CT scan showed evidence of acute intra-abdominal pathology. Vital Signs Vital signs: Vital Signs Temperature 36.7 C 05/23/21 21:02 Pulse Rate 63 05/23/21 21:02 Respiratory Rate 14 05/23/21 21:02 Blood Pressure 118/66 05/23/21 21:02 Pulse Oximetry 100 05/23/21 21:02 Temperature 36.7 C 05/23/21 21:48 Pulse Rate 78 05/23/21 23:02 Respiratory Rate 18 05/23/21 23:02 Blood Pressure 132/72 05/23/21 23:02 Pulse Oximetry 100 05/23/21 23:02 Medical Decision Making Vital Signs Vital Signs: Vital Signs Temperature 36.7 C 05/23/21 21:02 Pulse Rate 63 05/23/21 21:02 Respiratory Rate 14 05/23/21 21:02 Blood Pressure 118/66 05/23/21 21:02 Pulse Oximetry 100 05/23/21 21:02 Temperature 36.7 C 05/23/21 21:48 Pulse Rate 78 05/23/21 23:02 Respiratory Rate 18 05/23/21 23:02 Blood Pressure 132/72 05/23/21 23:02 Pulse Oximetry 100 05/23/21 23:02 Lab Data Result diagrams: 05/23/21 21:08 05/23/21 21:08 Labs: Lab Results 05/23/21 05/23/21 05/23/21 Range/Units 21:08 21:08 21:15 WBC 12.5 H (4.5-10.0) K/mm3 RBC 4.26 (4.2-5.4) M/mm3 Hgb 12.8 D (12.0-15.0) g/dL Hct 38.6 (37.0-47.0) % MCV 90.6 (80-100) fl MCH 30.0 (26-34) pg MCHC 33.2 (32-36) g/dl RDW 13.2 (11.5-14.5) % Plt Count 319 D (150-375) k/mm3 MPV 9.8 (7.4-10.4) fl Immature Gran % (Auto) 0.3 (0-0.5) % Neut % (Auto) 42.7 L (45.5-73.1) % Lymph % (Auto) 44.0 (18.3-44.2) % [place] % (Auto) 7.8 (2.6-8.5) % Eos % (Auto) 4.8 H (0-4.4) % Baso % (Auto) 0.4 (0.2-1.2) % Lymph # (Auto) 5.49 H (0.9-3.2) K/mm3 [place] # (Auto) 1.0 H (0.1-0.6) K/mm3 Eos # (Auto) 0.6 H (0-0.3) K/mm3 Baso
[2021-05-24 00:25] VITALS: BP 118/83; PULSE 72; RESP 19; O2SAT 100
== END 2021-05-24 00:26 | disposition home or self-care (01) ==
PROVIDERS: Emergency Provider Emergency Medicine
DX: R10.84 Generalized abdominal pain (principal); E03.9 Hypothyroidism, unspecified; Z87.891 Personal history of nicotine dependence
CPT/HCPCS: 36415; 74177; 80053; 81001; 81025; 83690; 85025; 96361; 96374; 96375; 99284; J1885; J2405; J7030; Q9967

== ENCOUNTER 2022-02-10 18:28 | Emergency (ER) | payer BC, MEDICAID, SELFPAY ==
[2022-02-10 18:58] VITALS: BP 120/75; PULSE 61; RESP 16; TEMP 36.7; O2SAT 100
--- NOTE | 2022-02-10 19:25 | ED.HA ---
HPI - Headache General Chief Complaint: Headache Stated Complaint: migraine x 4 days Time Seen by Provider: 02/10/22 19:16 History of Present Illness HPI Narrative: 26-year-old female with history of migraines presented to the emergency department for evaluation of migraine for the last 4 days. Patient states that the headache did not start as her typical migraine but does feel identical in nature to her typical migraines. Patient states typically she does have an aura with her migraines and it is associated with light and sound sensitivity. Patient states this headache started when she woke up a few days ago but is still located in the same position and still has the similar associations. Patient states she does have light and sound sensitivity. Patient states she does have some nausea without vomiting. Patient denies any current nausea. Patient did have follow-up with her primary care physician and was prescribed sumatriptan. Patient did take this on Tuesday and Tuesday but did not take any today because she has not yet reached the 24-hour paulo. Patient states that she feels that some of her migraine triggers are light and poor appetite. Patient states she has not been drinking as much water as she could. Patient denies any fevers. Patient denies any associated numbness or weakness. Patient denies any falls or injuries. Patient is unsure of her status. Related Data Home Medications Medication Instructions Recorded Confirmed escitalopram oxalate 10 mg tablet 10 mg PO DAILY 05/23/21 sumatriptan succinate 50 mg tablet tablet PO 02/10/22 trazodone 50 mg tablet tablet 02/10/22 Allergies Allergy/AdvReac Type Severity Reaction Status Date / Time No Known Allergies Allergy Unknown Verified 02/10/22 19:17 Review of Systems Review of Systems: CONSTITUTIONAL: Denies fever, chills, or sweats. EYES: Denies visual changes, redness, or discharge. ENT: Denies rhinorrhea, congestion, sore throat, or otalgia. CARDIOVASCULAR: Denies chest pain, palpitations, or edema. RESPIRATORY: Denies cough or dyspnea. GASTROINTESTINAL: Denies abdominal pain, nausea, vomiting, or diarrhea. GENITOURINARY: Denies dysuria or hematuria. SKIN: Denies rash or itching. MUSCULOSKELETAL: Denies back pain, joint pain, or myalgia. NEUROLOGIC: See HPI [facility] Family History Family History Mother Hypothyroidism Social History Social History Smoking packs per day: 0.5 Smoking cigarettes per day: 10.0 Years smoked: 6 Smoking pack-years: 3.00 Smoking status: Former smoker Tobacco type: cigarettes Substance use: never Gender identity (if verbalized by the patient): Female Spiritual care concerns: No Exam Narrative: APPEARANCE: Well appearing, no pain, no distress, well-nourished. HEAD: normocephalic, atraumatic. EYES: PERRLA/EOMI, conjunctivae clear. NOSE: Normal no drainage EARS:TMS clear with good light reflex. THROAT: Pharynx clear, no exudate. NECK: Supple. No adenopathy, no masses. RESPIRATORY: Airway patent, respirations nonlabored. Clear to auscultation bilaterally, no rales, rhonchi, wheezing. CARDIOVASCULAR: Regular rate and rhythm without murmurs rubs or gallops. ABDOMINAL: Soft, nontender, nondistended, normal bowel sounds MUSCULOSKELETAL: Moves all extremities. Strength/ROM intact, No edema, No calf tenderness. NEURO: Alert. Cranial nerves II through XII intact. Grossly intact. Normal forward and backward tandem gait. No discoordination or ataxia. Normal visual cordova. SKIN: Warm, dry. Normal Color Course Course Emergency Course: Patient reports when she arrived her headache was a 10 out of 10. On reevaluation patient states her headache is down to 1 and patient is comfortable with the plan for discharge to home and close follow-up. Patient is well-appearing. All questions concern
[2022-02-10 20:06] LABS: Appearance Urine Clear (Clear); Bilirubin Urine Negative (Negative); Blood Urine 1+ (Negative); Color Urine Yellow (Yellow); Glucose Urine UA Negative (Negative); Ketones Urine Negative (Negative); Leukocyte Esterase Ur Negative LEU/UL (Negative); Nitrate Urine Negative (Negative); Protein Urine Negative (Negative); Specific Grav Ur 1.025 (1.001-1.035); Urobilinogen Urine 0.2 mg/dL (<2.0)
[2022-02-10] MEDS: SODIUM CHLORIDE 0.9% IV 1,000 ML 999 ML IV CONT (20:11)
[2022-02-10] MEDS: diphenhydrAMINE HCl INJ 50 MG/ML VIAL IV PUSH (20:12)
[2022-02-10] MEDS: PROCHLORPERAZINE EDISYLATE 10 MG/2 ML VIAL IV PUSH (20:12)
[2022-02-10 20:25] LABS: Bacteria Urine Trace /hpf; Mucus Urine Rare /lpf; Squamous Epithelial Cell Urine Occasional /hpf (Few); WBC Urine 0-3 /hpf
[2022-02-10 20:28] LABS: Add Urine Microscopic? YES
[2022-02-10 21:19] VITALS: BP 114/75; PULSE 59; RESP 19; O2SAT 98
== END 2022-02-10 21:20 | disposition home or self-care (01) ==
PROVIDERS: Emergency Provider Emergency Medicine; PCP Internal Medicine
DX: G43.909 Migraine, unspecified, not intractable, without status migrainosus (principal)
CPT/HCPCS: 81001; 81025; 96361; 96374; 96375; 99284; J0780; J1200; J7030

== ENCOUNTER 2023-01-08 08:16 | Emergency (ER) | payer BC, MEDICAID, SELFPAY ==
--- NOTE | 2023-01-08 08:25 | ED.GENADULT ---
HPI - General Adult General Chief complaint: Neck Pain/Injury Stated complaint: Neck Pain Time Seen by Provider: 01/08/23 08:35 Source: patient, RN notes reviewed and old records reviewed Mode of arrival: ambulatory Limitations: no limitations History of Present Illness HPI narrative: 27-year-old female who presents to [facility] with complaints of right neck pain which started yesterday morning when she was lying on her abdomen and turned to check on son who was coughing. She reports pain to right side of her neck especially if she tries to turn her neck to the right side. Patient denies any pain in her upper extremities, denies any tingling or numbness to her hands.Patient has been taking Ibuprofen and also using heating pad and has also used ice to neck without resolution. MD complaint: Right neck pain Onset (ago): day(s) (yesterday morning) Location: neck Radiation: non-radiation Severity scale (1-10): 5 Quality: aching Exacerbating factors: other (trying to turn her head to right) Treatments prior to arrival: NSAID, cold therapy and heat therapy Related Data Home Medications Medication Instructions Recorded Confirmed escitalopram oxalate 10 mg tablet 10 mg PO DAILY 05/23/21 01/08/23 sumatriptan succinate 50 mg tablet 50 tablet PO DAILY 02/10/22 01/08/23 Depo-Provera 1 unit IM DIRECTED 01/08/23 01/08/23 cetirizine 10 mg tablet 10 mg PO DAILY 01/08/23 01/08/23 fluticasone propionate 50 2 mcg intranasal DAILY 01/08/23 01/08/23 mcg/actuation nasal spray,suspension topiramate 25 mg tablet 25 mg PO HS 01/08/23 01/08/23 Allergies Allergy/AdvReac Type Severity Reaction Status Date / Time No Known Allergies Allergy Unknown Verified 01/08/23 08:21 Review of Systems Review of Systems: CONSTITUTIONAL: Denies fever, chills, or sweats. EYES: Denies visual changes, redness, or discharge. ENT: Denies rhinorrhea, congestion, sore throat, or otalgia. CARDIOVASCULAR: Denies chest pain, palpitations, or edema. RESPIRATORY: Denies cough or dyspnea. GASTROINTESTINAL: Denies abdominal pain, nausea, vomiting, or diarrhea. GENITOURINARY: Denies dysuria or hematuria. SKIN: Denies rash or itching. MUSCULOSKELETAL: Reports right neck pain, no other joint pain, or myalgia. NEUROLOGIC: Denies headache, numbness, or weakness. PSYCHIATRIC: Positive for history of anxiety or depression. All systems reviewed & are unremarkable except as noted in HPI and below PMFSH Past Medical History Medical History (Updated 01/09/23 @ 08:06 by Marixa Foreman NP) Migraine Surgical History Surgical History (Updated 01/08/23 @ 08:27 by Marixa Foreman NP) History of tonsillectomy Family History Family History (Updated 01/09/23 @ 07:58 by Marixa Foreman NP) Mother Hypothyroidism Carcinoma of colon Ovarian cancer Social History Social History (Updated 01/09/23 @ 08:01 by Marixa Foreman NP) Smoking packs per day: 0.5 Smoking cigarettes per day: 10.0 Smoking status: Current every day smoker Tobacco type: cigarettes Substance use: never Gender identity (if verbalized by the patient): Female Spiritual care concerns: No Comments At time of signature, agree with nursing past medical, surgical, social and family history. There is no relevant family history pertinent to the presenting complaint Exam Narrative: GENERAL: Well-appearing, well-nourished, and in no acute distress. HEAD: Normocephalic, atraumatic. EYES: PERRLA and EOMI. ENT: Nares clear, no rhinorrhea or epistaxis. Mucous membranes moist.TM's normal, throat pink with no swelling NECK: Supple. pain with turning neck to the right,stiffness CHEST: Clear to auscultation. No respiratory distress.SAO2 100% on room air HEART: Regular rate and rhythm. No murmur heard. Normal peripheral pulses. ABDOMEN: Soft, nontender, nondistended, normal active bowel sounds. EXTREMITIES: Normal range of motion. No edema.denies any tingling or numbness to her u
[2023-01-08 08:28] VITALS: BP 119/68; PULSE 62; RESP 16; TEMP 37.1; O2SAT 100
== END 2023-01-08 09:05 | disposition home or self-care (01) ==
PROVIDERS: Emergency Provider Registered Nurse
DX: S39.012A Strain of muscle, fascia and tendon of lower back, initial encounter (principal); X50.9XXA Other and unspecified overexertion or strenuous movements or postures, initial encounter; F17.210 Nicotine dependence, cigarettes, uncomplicated
CPT/HCPCS: 99213; G0463

== ENCOUNTER 2023-04-09 06:04 | Emergency (ER) | payer BC, MEDICAID, SELFPAY ==
[2023-04-09 06:06] VITALS: BP 123/84; PULSE 66; RESP 14; TEMP 36.6; O2SAT 99
[2023-04-09 06:48] VITALS: BP 120/71; PULSE 60; RESP 14; TEMP 36.4; O2SAT 99
--- NOTE | 2023-04-09 07:23 | ED.GENADULT ---
HPI - General Adult General Chief complaint: Unspecified Stated complaint: burning pain from neck Time Seen by Provider: 04/09/23 07:23 Source: patient Mode of arrival: ambulatory Limitations: no limitations History of Present Illness HPI narrative: 28 years old white female came to the ED by private car, complaining of right-sided neck pain radiating to right upper back and right shoulder externally wake her up at 3 AM. Patient reports going to bed last night okay without any complaints. She denies any recent unusual physical activity history of pulled muscle at the right side of her neck in the past similar to this 1 for unknown reason. She denies any fever, chills, nausea, vomiting, trouble swallowing or breathing or headache. Related Data Home Medications Medication Instructions Recorded Confirmed escitalopram oxalate 10 mg tablet 10 mg PO DAILY 05/23/21 01/08/23 sumatriptan succinate 50 mg tablet 50 tablet PO DAILY 02/10/22 01/08/23 Depo-Provera 1 unit IM DIRECTED 01/08/23 01/08/23 cetirizine 10 mg tablet 10 mg PO DAILY 01/08/23 01/08/23 fluticasone propionate 50 2 mcg intranasal DAILY 01/08/23 01/08/23 mcg/actuation nasal spray,suspension topiramate 25 mg tablet 25 mg PO HS 01/08/23 01/08/23 Allergies Allergy/AdvReac Type Severity Reaction Status Date / Time No Known Allergies Allergy Unknown Verified 04/09/23 06:04 Review of Systems Review of Systems: All systems reviewed & are unremarkable except as noted in HPI and below PMFSH Past Medical History Medical History Migraine Surgical History Surgical History History of tonsillectomy Family History Family History Mother Hypothyroidism Carcinoma of colon Ovarian cancer Social History Social History Smoking packs per day: 0.5 Smoking cigarettes per day: 10.0 Smoking status: Current every day smoker Tobacco type: cigarettes Substance use: never Gender identity (if verbalized by the patient): Female Spiritual care concerns: No Exam Narrative: General appearance: Well-developed, well-nourished Skin: Normal color Head: Normocephalic, nontraumatic Eyes: Clear conjunctiva ENT: Oropharynx normal, ears normal, nose normal Neck: Supple, mild diffuse tenderness right side of neck, right upper and right shoulder externally. Slight limited range of motion because of pain, no bruises, no swelling, no rash, no deformity Chest and respiratory: Airway patent, no respiratory distress, no accessory muscle use Heart: Regular rate/rhythm Abdomen: Soft, nontender, no organomegaly, quiet bowel sounds Vascular: Normal peripheral pulses, normal capillary refill. Musculoskeletal: Normal range of motion, nontender back Neurologic: Alert and oriented ?3, [employer] is normal as tested, no gross motor deficit Const: General: healthy appearing, comfortable, no acute distress and average body habitus Nutritional Appearance: average body habitus and well nourished Orientation/consciousness: oriented to person, oriented to place and oriented to time HENMT: Head: normal to inspection Face and sinus: normal facial exam Mouth: Yes Normal oral and palatal mucosa present Teeth and gingiva: dentition normal Throat: posterior oropharynx normal Eyes: General: appearance normal, both eyes and all related structures Visual Cordova: normal visual cordova by confrontation Alignment and Position: alignment normal Periorbital: periorbital findings normal Eyelids: eyelids normal Con
[2023-04-09] MEDS: diazePAM (*CRX) 5 MG TABLET PO (07:59)
[2023-04-09] MEDS: KETOROLAC (*BKC) 60 MG/2 ML VIAL IM (07:59)
== END 2023-04-09 08:34 | disposition home or self-care (01) ==
PROVIDERS: Emergency Provider Emergency Medicine; PCP Internal Medicine
DX: M54.2 Cervicalgia (principal); F17.210 Nicotine dependence, cigarettes, uncomplicated
CPT/HCPCS: 96372; 99283; A9270; J1885

== ENCOUNTER 2023-09-27 19:14 | Emergency (ER) | payer BC, MEDICAID, SELFPAY ==
[2023-09-27 19:22] VITALS: BP 142/88; PULSE 69; RESP 16; TEMP 37.2; O2SAT 99
--- NOTE | 2023-09-27 19:32 | ED.GENADULT ---
HPI - General Adult General Chief complaint: Upper Respiratory Infection Stated complaint: Insect Bite Time Seen by Provider: 09/27/23 19:32 History of Present Illness HPI narrative: 28-year-old female presented for complaint of possible insect bite to the right elbow. Endorses redness, warmth, and tenderness to the site. First noticed about 2 days ago. States yesterday she expelled green drainage from a black head, today it broke open on its own and drained yellow drainage. Applied antibiotic ointment and a dressing. Patient also endorses sore throat for about 5 days. Reports painful swallow. Denies shortness of breath, wheezing, nausea vomiting, fevers or chills. Related Data Home Medications Medication Instructions Recorded Confirmed escitalopram oxalate 10 mg tablet 10 mg PO DAILY 05/23/21 09/27/23 sumatriptan succinate 50 mg tablet 50 tablet PO DAILY 02/10/22 09/27/23 cetirizine 10 mg tablet 10 mg PO DAILY 01/08/23 09/27/23 fluticasone propionate 50 2 mcg intranasal DAILY 01/08/23 09/27/23 mcg/actuation nasal spray,suspension gabapentin 100 mg capsule 100 mg PO HS 09/27/23 09/27/23 Allergies Allergy/AdvReac Type Severity Reaction Status Date / Time No Known Allergies Allergy Unknown Verified 09/27/23 19:18 Review of Systems Review of Systems: CONSTITUTIONAL: Denies body aches, fever, chills, or sweats. EYES: Denies visual changes, redness, or discharge. ENT: reports sore throat Denies rhinorrhea, congestion, or otalgia. CARDIOVASCULAR: Denies chest pain, palpitations, or edema. RESPIRATORY: Denies dyspnea. GASTROINTESTINAL: Denies abdominal pain, nausea, vomiting, or diarrhea. SKIN: reports red wound to elbow MUSCULOSKELETAL: Denies back pain, joint pain, or myalgia. NEUROLOGIC: Denies headache PMFSH Past Medical History Medical History Migraine Surgical History Surgical History History of tonsillectomy Family History Family History Mother Hypothyroidism Carcinoma of colon Ovarian cancer Social History Social History Smoking packs per day: 0.5 Smoking cigarettes per day: 10.0 Smoking status: Current every day smoker Tobacco type: cigarettes Substance use: never Gender identity (if verbalized by the patient): Female Spiritual care concerns: No Exam Narrative: GENERAL: well-appearing, no acute distress. EYES: conjunctivae clear ENT: Mucous membranes moist. TMs pearly posadas with normal light reflex bilaterally; no tragal tenderness. Oropharynx erythematous Tonsils enlarged 2+ and without exudate. Large amount PND. No drooling, no hoarseness, no trismus, uvula midline. No tripod positioning, hot potato voice, or soft palate swelling. NECK: Supple. No lymphadenopathy CHEST: Clear to auscultation, breath sounds equal. No respiratory distress, speaks in full sentences. HEART: Regular rate and rhythm. No murmur heard. SKIN: Warm, dry, Right elbow with approx 3cm diameter area of mild erythema; warm, tender with pinpoint open area at center without active drainage. Full ROM to elbow. NEURO: Alert and oriented x3. Course Course Emergency Course: Patient is aware of diagnosis, understands and agrees to treatment plan. Anticipatory guidance given. Patient agrees to follow-up as directed and is aware of reasons to seek care at the emergency department. Portions of this record may have been created with voice recognition software Level of Care: Express Care Visit Vital Signs Vital signs: Vital Signs Temperature 98.9 F 09/27/23 19:22 Pulse Rate 69 09/27/23 19:22 Respiratory Rate 16 09/27/23 19:22 Blood Pressure 142/88 H 09/27/23 19:22 Pulse Oximetry 99 09/27/23 19:22 Oxygen Delivery Room Air 09/27/23 19:22 Temp
== END 2023-09-27 19:46 | disposition home or self-care (01) ==
PROVIDERS: Emergency Provider Nurse Practitioner Family; PCP Internal Medicine
DX: J02.0 Streptococcal pharyngitis (principal); L02.413 Cutaneous abscess of right upper limb; F17.210 Nicotine dependence, cigarettes, uncomplicated
CPT/HCPCS: 87880; 99213; G0463

== ENCOUNTER 2023-10-02 19:06 | Emergency (ER) | payer BC, MEDICAID, SELFPAY ==
[2023-10-02 19:08] VITALS: BP 125/89; PULSE 71; RESP 20; TEMP 36.5; O2SAT 100
--- NOTE | 2023-10-02 20:56 | ED.GENADULT ---
HPI - General Adult General Chief complaint: Skin/Abscess/Foreign Body Stated complaint: infection R arm Time Seen by Provider: 10/02/23 20:36 Source: patient Mode of arrival: ambulatory Limitations: no limitations History of Present Illness HPI narrative: This is a 28-year-old female with chief complaint of right elbow redness and swelling for the past week. Reports she initially had a small ?pimple? to the posterior elbow that she popped on her own. She reports expressing some green/yellow purulent discharge. She was seen by urgent care and placed on Augmentin and has taken this through its full course. Today she states the area is starting to get little more red and a small amount is getting swollen again. Denies any further drainage. Denies fevers, chills, nausea, vomiting. Additionally patient does state that she works in a [employer] with a lot of patient contact. Related Data Home Medications Medication Instructions Recorded Confirmed escitalopram oxalate 10 mg tablet 10 mg PO DAILY 05/23/21 09/27/23 sumatriptan succinate 50 mg tablet 50 tablet PO DAILY 02/10/22 09/27/23 cetirizine 10 mg tablet 10 mg PO DAILY 01/08/23 09/27/23 fluticasone propionate 50 2 mcg intranasal DAILY 01/08/23 09/27/23 mcg/actuation nasal spray,suspension gabapentin 100 mg capsule 100 mg PO HS 09/27/23 09/27/23 Allergies Allergy/AdvReac Type Severity Reaction Status Date / Time No Known Allergies Allergy Unknown Verified 09/27/23 19:18 Review of Systems Review of Systems: All systems as dictated in [facility] Past Medical History Medical History Migraine Surgical History Surgical History History of tonsillectomy Family History Family History Mother Hypothyroidism Carcinoma of colon Ovarian cancer Social History Social History Smoking packs per day: 0.5 Smoking cigarettes per day: 10.0 Smoking status: Current every day smoker Tobacco type: cigarettes Substance use: never Gender identity (if verbalized by the patient): Female Spiritual care concerns: No Exam Narrative: GENERAL: Well-appearing, well-nourished, and in no acute distress. HEAD: Normocephalic, atraumatic. EYES: PERRLA and EOMI. ENT: Nares clear, no rhinorrhea or epistaxis. Mucous membranes moist. Oropharynx without tonsillar hypertrophy exudate or other lesions. NECK: Supple. No adenopathy or masses. CHEST: No respiratory distress. Clear to auscultation. No wheezes rales or rhonchi HEART: Regular rate and rhythm. No murmur heard. Normal peripheral pulses. ABDOMEN: Soft, nontender, nondistended, normal active bowel sounds. MSK: Normal range of motion. No edema. Full range of motion upper extremities throughout all joints. SKIN: 2 cm area of erythema and swelling to the posterior aspect of the right elbow. No drainage. No fluctuance. No surrounding erythema. No red streaks up the arm. NEURO: Alert and oriented x3. No focal deficits. PSYCH: Normal mood and affect. Course Course Emergency Course: Bedside ultrasound exam performed and shows cobblestoning to the area of erythema over the elbow. No discrete abscess or fluid collection identified. Vital Signs Vital signs: Vital Signs Temperature 97.7 F 10/02/23 19:08 Pulse Rate 71 10/02/23 19:08 Respiratory Rate 20 10/02/23 19:08 Blood Pressure 125/89 10/02/23 19:08 Pulse Oximetry 100 10/02/23 19:08 Oxygen Delivery Room Air 10/02/23 19:08 Temperature 97.7 F 10/02/23 19:08 Pulse Rate 71 10/02/23 19:08 Respiratory Rate 20 10/02/23 19:08 Blood Pressure 125/89 10/02/23 19:08 Pulse Oximetry 100 10/02/23 19:08 Oxygen Delivery Room Air 10/02/23 19:08 Medical Decision Making MDM Narrative Medi
== END 2023-10-02 21:33 | disposition home or self-care (01) ==
PROVIDERS: Emergency Provider Physician Assistant; PCP Internal Medicine
DX: L03.113 Cellulitis of right upper limb (principal); F17.210 Nicotine dependence, cigarettes, uncomplicated
CPT/HCPCS: 99283

== ENCOUNTER 2023-12-14 10:48 | Outpatient (CLI) | payer BC, MEDICAID, SELFPAY ==
[2023-12-14 11:21] LABS: Basophils Percent Auto 0.3 % (0.2-1.2); Eosinophils Absolute Auto 0.2 K/mm3 (0-0.3); Eosinophils Percent Auto 1.5 % (0-4.4); Hematocrit 39.7 % (37.0-47.0); Hemoglobin 13.3 g/dL (12.0-15.0); Immature Granulocyte Absolute 0.06 K/mm3 (0.00-0.031); Immature Granulocyte Percent A 0.6 % (0-0.5); Lymphocytes Absolute Auto 3.63 K/mm3 (0.9-3.2); Lymphocytes Percent Auto 34.6 % (18.3-44.2); Mean Corpuscular HGB Conc 33.5 g/dl (32-36); Mean Corpuscular Hemoglobin 29.4 pg (26-34); Mean Corpuscular Volume 87.6 fl (80-100); Mean Platelet Volume 9.4 fl (7.4-10.4); Monocytes Absolute Auto 0.7 K/mm3 (0.1-0.6); Monocytes Percent Auto 6.2 % (2.6-8.5); Neutrophils Percent Auto 56.8 % (45.5-73.1); Platelet Count Result 307 k/mm3 (150-375); Red Blood Count 4.53 M/mm3 (4.2-5.4); Red Cell Distribution Width 13.9 % (11.5-14.5); White Blood Count 10.5 K/mm3 (4.5-10.0)
[2023-12-14 12:14] LABS: HIV 1/2 Ab P24 Ag Result Negative (Negative)
[2023-12-14 12:44] LABS: Hepatitis B Surface Antigen Negative (Negative); Rubella IgG Antibody 26.2 IU/ML
[2023-12-15 21:02] LABS: Rapid Plasma Reagin Non-Reactive (NonReactive)
[2023-12-16 15:27] LABS: CMV IgG Antibody >10.00 U/mL
== END 2023-12-14 10:49 | disposition home or self-care (01) ==
LOC: ANHLAB 10:49
PROVIDERS: PCP Internal Medicine; Visit Provider Student in an Organized Health Care Education/Training Program
DX: N91.2 Amenorrhea, unspecified (principal)
CPT/HCPCS: 36415; 84702; 85025; 86592; 86644; 86703; 86747; 86762; 86787; 86850; 86900; 86901; 87086; 87088; 87340; G0432

== ENCOUNTER 2023-12-20 08:46 | Outpatient (CLI) | payer BC, MEDICAID, SELFPAY ==
[2023-12-20 10:52] LABS: Glucose 1 Hour PP 50gm Dose 101 mg/dL
== END 2023-12-20 08:47 | disposition home or self-care (01) ==
PROVIDERS: PCP Internal Medicine; Visit Provider Student in an Organized Health Care Education/Training Program
DX: N91.2 Amenorrhea, unspecified (principal)
CPT/HCPCS: 36415; 82947

== ENCOUNTER 2024-02-04 15:50 | Emergency (ER) | payer BC, MEDICAID, SELFPAY ==
[2024-02-04 16:00] VITALS: BP 100/56; PULSE 69; RESP 20; TEMP 36.3; O2SAT 100
--- NOTE | 2024-02-04 16:33 | ED.ABDPAIN ---
HPI - Abdominal Pain General Chief Complaint: Abdominal Pain Stated Complaint: sharp, burning pain on R side, 15wks Time Seen by Provider: 02/04/24 16:19 Source: patient Mode of arrival: ambulatory Limitations: no limitations History of Present Illness HPI narrative: 28-year-old G3 P 101 1 female approximately 15 weeks (states LMP 10/26/23 and DESTINEE 07/30/24) presents with 2 days of abdominal pain along her right side. She states it had been intermittent but then became more constant. She describes it as sharp and burning. It radiates to her back. She has been nauseated but without vomiting. Last oral intake 10:00 a.m.. Her last bowel movement was this morning and she notes that her stools often alternate between normal, diarrheal, and constipation. She tried a warm bath. She has not yet been taken anything for pain. She denies anyone in the household with similar symptoms. No fevers. She denies any vaginal bleeding or contraction. No leakage of fluids. She felt last week that she might have felt a fluttering sensation for few days but does not know if she is truly had movement. Her OB Gyne is Dr. Santos and she has an appointment to see them later this week. She denies any dysuria, hematuria, urgency or frequency. Related Data Allergies Allergy/AdvReac Type Severity Reaction Status Date / Time No Known Allergies Allergy Unknown Verified 02/04/24 15:52 [facility] Past Medical History Medical History Anxiety Migraine Surgical History Surgical History History of tonsillectomy Family History Family History Mother Hypothyroidism Carcinoma of colon Ovarian cancer Social History Social History Smoking packs per day: 0.5 Smoking cigarettes per day: 10.0 Smoking status: Former smoker Tobacco type: cigarettes Alcohol intake: never Substance use: never Substance use type: does not use Do You Feel Safe in your Home?: Yes Lack of Transportation: No Lack of Food: Never True Current Housing: I Have Housing Concerned About Future Housing: No Difficulty Paying Gas/Electric Bills: No Difficulty Paying for Meds: No Currently Unemployed: No Education: High School Diploma/GED Difficulty w/ Childcare or Family Care: No Living arrangements: with family Additional living arrangements comments: + kids Occupation/Education: occupation Gender identity (if verbalized by the patient): Female Sexual Orientation (if Verbalized by the Patient): Straight or Heterosexual Spiritual care concerns: No Course Vital Signs Vital signs: Vital Signs Temperature 97.4 F L 02/04/24 16:00 Pulse Rate 69 02/04/24 16:00 Respiratory Rate 20 02/04/24 16:00 Blood Pressure 100/56 L 02/04/24 16:00 Pulse Oximetry 100 02/04/24 16:00 Temperature 98.2 F 02/04/24 18:37 Pulse Rate 72 02/04/24 18:37 Respiratory Rate 18 02/04/24 18:37 Blood Pressure 110/75 02/04/24 18:37 Pulse Oximetry 100 02/04/24 18:37 MDM - Abdominal Pain MDM Narrative Medical decision making narrative: This is a 28 yo patient at 14weeks/4days gestational age by reported DESTINEE 07/30/24 presenting with 2 days of abdominal pain radiating to her back. Associated with nausea. Considered spectrum of miscarriage/ (threatened, inevitable, incomplete, complete, septic) as well as causes of female-specific abdominal pain unrelated to (e.g., pelvic inflammatory disease with or without tubo-ovarian abscess, Wdms-Yome-Lkmqnz, UTI, ovarian torsion, etc.). Also considered causes of abdominal pain that are not gender-specific (e.g., appendicitis, volvulus, small bowel obstruction, mesenteric adenitis, nephrolithiasis, acute cholecystitis/choledocholithiasi
[2024-02-04 16:46] LABS: Basophils Percent Auto 0.2 % (0.2-1.2); Eosinophils Absolute Auto 0.3 K/mm3 (0-0.3); Eosinophils Percent Auto 1.9 % (0-4.4); Hematocrit 40.2 % (37.0-47.0); Hemoglobin 13.5 g/dL (12.0-15.0); Immature Granulocyte Absolute 0.07 K/mm3 (0.00-0.031); Immature Granulocyte Percent A 0.5 % (0-0.5); Lymphocytes Absolute Auto 5.18 K/mm3 (0.9-3.2); Lymphocytes Percent Auto 37.4 % (18.3-44.2); Mean Corpuscular HGB Conc 33.6 g/dl (32-36); Mean Corpuscular Hemoglobin 29.9 pg (26-34); Mean Corpuscular Volume 89.1 fl (80-100); Mean Platelet Volume 9.5 fl (7.4-10.4); Monocytes Absolute Auto 0.8 K/mm3 (0.1-0.6); Monocytes Percent Auto 5.4 % (2.6-8.5); Neutrophils Absolute Auto 7.6 K/mm3 (1.3-6.7); Neutrophils Percent Auto 54.6 % (45.5-73.1); Platelet Count Result 302 k/mm3 (150-375); Red Blood Count 4.51 M/mm3 (4.2-5.4); Red Cell Distribution Width 13.6 % (11.5-14.5); White Blood Count 13.9 K/mm3 (4.5-10.0)
[2024-02-04 16:52] LABS: Appearance Urine Clear (Clear); Bacteria Urine 1+ /hpf; Bilirubin Urine Negative (Negative); Blood Urine 1+ (Negative); Color Urine Yellow (Yellow); Glucose Urine UA Negative (Negative); Ketones Urine Trace mg/dL (Negative); Leukocyte Esterase Ur Negative LEU/UL (Negative); Nitrate Urine Negative (Negative); Non Pathogenic Casts 0-2; Protein Urine 1+ mg/dL (Negative); Specific Grav Ur 1.021 (1.001-1.035); Squamous Epithelial Cell Urine Moderate /hpf (Few); WBC Urine 0-5 /hpf (0-3); pH Urine 5.5 (5.0-9.0)
[2024-02-04 17:02] LABS: Add Urine Microscopic? YES; Alanine Aminotransferase 23 U/L (6-35); Alkaline Phosphatase 70 U/L (38-126); Anion Gap 13 mmol/L (4-12); Aspartate Amino Transferase 31 U/L (14-36); Bilirubin,Total 0.6 mg/dL (0.2-1.3); Blood Urea Nitrogen 6 mg/dL (7-17); Calcium 9.7 mg/dL (8.4-10.2); Carbon Dioxide 20 mmol/L (22-30); Chloride 105 mmol/L (98-107); Estimated CRCL calculation 158 ml/min; Estimated Glomerular Filt Rate > 60; Glucose 78 mg/dL (65-110); Lipase 68 U/L (23-300); Potassium 3.4 mmol/L (3.4-5.0); Sodium 138 mmol/L (137-145)
[2024-02-04] MEDS: ACETAMINOPHEN 500 MG TABLET 1000 MG PO (17:18)
[2024-02-04 17:50] VITALS: BP 111/73; PULSE 88; RESP 17; O2SAT 100
[2024-02-04] MEDS: CEPHALEXIN 500 MG CAPSULE PO (18:30)
[2024-02-04 18:37] VITALS: BP 110/75; PULSE 72; RESP 18; TEMP 36.8; O2SAT 100
== END 2024-02-04 18:39 | disposition home or self-care (01) ==
PROVIDERS: Emergency Provider Student in an Organized Health Care Education/Training Program; PCP Internal Medicine
DX: O26.892 Other specified pregnancy related conditions, second trimester (principal); R10.9 Unspecified abdominal pain; R31.29 Other microscopic hematuria; O99.891 Other specified diseases and conditions complicating pregnancy; D72.829 Elevated white blood cell count, unspecified; Z87.891 Personal history of nicotine dependence; Z3A.15 15 weeks gestation of pregnancy
CPT/HCPCS: 36415; 80053; 81001; 81025; 83690; 83735; 85025; 87086; 87088; 99283; A9270

== ENCOUNTER 2024-02-22 10:11 | Emergency (ER) | payer BC, MEDICAID, SELFPAY ==
[2024-02-22 10:26] VITALS: BP 113/52; PULSE 76; RESP 18; TEMP 36.7; O2SAT 100
--- NOTE | 2024-02-22 10:37 | ED.URI ---
HPI - URI/Sore Throat General Chief Complaint: Upper Respiratory Infection Stated Complaint: fever,throat pain, COVID exp long term Time Seen by Provider: 02/22/24 10:30 Source: patient and RN notes reviewed Mode of arrival: ambulatory Limitations: no limitations History of Present Illness HPI Narrative: Patient presents today complaining of a headache, sore throat, fever, and sore eyes since yesterday. Denies any additional symptoms such as shortness of breath, chest pain, cough. Currently rates her pain 3/10 and has tried no glcw-kev-oifaqia treatment prior to arrival. She is currently 17 weeks . Exposed to COVID-19 at work. 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 Related Data Home Medications Medication Instructions Recorded Confirmed vits no.126-ferrous fum 1 tablet PO DAILY 02/08/24 02/22/24 28 mg iron-folic acid 800 mcg tablet (Classic ) hydroxyzine HCl 25 mg tablet 25 mg PO PRN PRN anxiety or sleep 02/22/24 02/22/24 sertraline 25 mg tablet 25 mg PO DAILY 02/22/24 02/22/24 Allergies Allergy/AdvReac Type Severity Reaction Status Date / Time No Known Allergies Allergy Unknown Verified 02/22/24 10:30 Review of Systems Review of Systems: CONSTITUTIONAL: Denies body aches, chills, or sweats.+ fever EYES: Denies visual changes, redness, or discharge. ENT: Denies rhinorrhea, congestion, or otalgia. Sore eyes , sore throat CARDIOVASCULAR: Denies chest pain, palpitations, or edema. RESPIRATORY: Denies cough or dyspnea. GASTROINTESTINAL: Denies abdominal pain, nausea, vomiting, or diarrhea. GENITOURINARY: Denies dysuria or hematuria. SKIN: Denies rash, itching, or wounds. MUSCULOSKELETAL: Denies back pain, joint pain, or myalgia. NEUROLOGIC: Denies numbness, tingling, or weakness.+ headache PSYCH: Denies depression or anxiety. [facility] Past Medical History Medical History Anxiety Migraine Surgical History Surgical History History of tonsillectomy Family History Family History Mother Hypothyroidism Carcinoma of colon Ovarian cancer Social History Social History Smoking packs per day: 0.5 Smoking cigarettes per day: 10.0 Smoking status: Former smoker Tobacco type: cigarettes Alcohol intake: never Substance use: never Substance use type: does not use Do You Feel Safe in your Home?: Yes Lack of Transportation: No Lack of Food: Never True Current Housing: I Have Housing Concerned About Future Housing: No Difficulty Paying Gas/Electric Bills: No Difficulty Paying for Meds: No Currently Unemployed: No Education: High School Diploma/GED Difficulty w/ Childcare or Family Care: No Living arrangements: with family Additional living arrangements comments: + kids Occupation/Education: occupation Gender identity (if verbalized by the patient): Female Sexual Orientation (if Verbalized by the Patient): Straight or Heterosexual Spiritual care concerns: No Comments At time of signature, I have reviewed and agree with nursing past medical, surgical, social and family history unless otherwise noted. Please see nursing chart for further information. There is no relevant family history pertinent to the presenting complaint Exam Narrative: GENERAL: Well-appearing, well-nourished, and in no acute distress. HEAD: Normocephalic, atraumatic. EYES: EOMI. No redness or drainage. Conjunctivae normal. ENT: Mucous membranes pink and moist. Nares clear. No rhinorrhea. TMs normal bilaterally. Throat mildly erythematous without edema or exudate. Small amount of postnasal drainage. Uvula midline. NECK: Normal AROM. Supple. No lymphadenopathy. CHEST: No respiratory distress. Clear to auscultatio
[2024-02-22 10:59] LABS: EDINFLUASCREEN Negative; EDINFLUBSCREEN Negative
== END 2024-02-22 10:50 | disposition home or self-care (01) ==
PROVIDERS: Emergency Provider Nurse Practitioner; PCP Internal Medicine
DX: O99.512 Diseases of the respiratory system complicating pregnancy, second trimester (principal); Z3A.19 19 weeks gestation of pregnancy; J06.9 Acute upper respiratory infection, unspecified; Z20.822 Contact with and (suspected) exposure to COVID-19; Z87.891 Personal history of nicotine dependence
CPT/HCPCS: 87426; 87804; 99213; G0463

== ENCOUNTER 2024-05-17 08:32 | Outpatient (CLI) | payer MEDICAID, SELFPAY ==
[2024-05-17 10:19] LABS: Basophils Absolute Auto 0.1 K/mm3 (0.0-0.1); Basophils Percent Auto 0.5 % (0.2-1.2); Eosinophils Absolute Auto 0.2 K/mm3 (0-0.3); Eosinophils Percent Auto 1.8 % (0-4.4); Hematocrit 33.1 % (37.0-47.0); Hemoglobin 10.8 g/dL (12.0-15.0); Immature Granulocyte Absolute 0.43 K/mm3 (0.00-0.031); Immature Granulocyte Percent A 3.5 % (0-0.5); Lymphocytes Absolute Auto 2.91 K/mm3 (0.9-3.2); Lymphocytes Percent Auto 23.7 % (18.3-44.2); Mean Corpuscular HGB Conc 32.6 g/dl (32-36); Mean Corpuscular Hemoglobin 29.7 pg (26-34); Mean Corpuscular Volume 90.9 fl (80-100); Mean Platelet Volume 10.2 fl (7.4-10.4); Monocytes Absolute Auto 0.8 K/mm3 (0.1-0.6); Monocytes Percent Auto 6.8 % (2.6-8.5); Neutrophils Absolute Auto 7.8 K/mm3 (1.3-6.7); Neutrophils Percent Auto 63.7 % (45.5-73.1); Platelet Count Result 241 k/mm3 (150-375); Red Blood Count 3.64 M/mm3 (4.2-5.4); Red Cell Distribution Width 13.2 % (11.5-14.5); White Blood Count 12.3 K/mm3 (4.5-10.0)
[2024-05-17 10:31] LABS: Glucose 1 Hour PP 50gm Dose 128 mg/dL
[2024-05-17 11:13] LABS: HIV 1/2 Ab P24 Ag Result Negative (Negative)
[2024-05-17 15:36] LABS: Rapid Plasma Reagin Non-Reactive (NonReactive)
== END 2024-05-17 08:33 | disposition home or self-care (01) ==
LOC: ANHLAB 08:34
PROVIDERS: PCP Internal Medicine; Visit Provider Student in an Organized Health Care Education/Training Program
DX: Z34.90 Encounter for supervision of normal pregnancy, unspecified, unspecified trimester (principal)
CPT/HCPCS: 36415; 82947; 85025; 86592; 86703; G0432

== ENCOUNTER 2024-05-22 00:49 | Emergency (ER) | payer BC, MEDICAID, SELFPAY ==
[2024-05-22] VITALS (8 sets, daily range): BP systolic 103–122; BP diastolic 57–82; PULSE 86–106; RESP 16; TEMP 36.8–37.2; O2SAT 97–98
--- NOTE | 2024-05-22 01:22 | PC.NURSE ---
heart tones [id number]
[2024-05-22 01:46] LABS: Strep Group A RT-PCR NOT DETECTED (Negative)
--- NOTE | 2024-05-22 01:52 | ED.GENADULT ---
HPI - General Adult General Chief complaint: Fever Stated complaint: fever of 104 Time Seen by Provider: 05/22/24 01:09 History of Present Illness HPI narrative: patient is a 29-year-old female who presents emergency department with chief complaint of sore throat low-grade fever chills ear congestion patient reports she is 29 weeks or so the longterm. Related Data Home Medications Medication Instructions Recorded Confirmed vits no.126-ferrous fum 1 tablet PO DAILY 02/08/24 05/22/24 28 mg iron-folic acid 800 mcg tablet (Classic ) hydroxyzine HCl 25 mg tablet 25 mg PO PRN PRN anxiety or sleep 02/22/24 03/28/24 sertraline 25 mg tablet 25 mg PO DAILY 02/22/24 03/28/24 Allergies Allergy/AdvReac Type Severity Reaction Status Date / Time No Known Allergies Allergy Unknown Verified 05/22/24 01:04 Review of Systems Review of Systems: A 10 system review of systems was completed on the patient and is negative except for what is stated in the HPI. Nursing and ancillary documentation was reviewed. PMFSH Past Medical History Medical History Anxiety Migraine Surgical History Surgical History History of tonsillectomy Family History Family History Mother Hypothyroidism Carcinoma of colon Ovarian cancer Social History Social History Smoking packs per day: 0.5 Smoking cigarettes per day: 10.0 Smoking status: Former smoker Tobacco type: cigarettes Alcohol intake: never Substance use: never Substance use type: does not use Do You Feel Safe in your Home?: Yes Lack of Transportation: No Lack of Food: Never True Current Housing: I Have Housing Concerned About Future Housing: No Difficulty Paying Gas/Electric Bills: No Difficulty Paying for Meds: No Currently Unemployed: No Education: High School Diploma/GED Difficulty w/ Childcare or Family Care: No Living arrangements: with family Additional living arrangements comments: + kids Occupation/Education: occupation Gender identity (if verbalized by the patient): Female Sexual Orientation (if Verbalized by the Patient): Straight or Heterosexual Spiritual care concerns: No Exam Narrative: GENERAL: Well-appearing, well-nourished, and in no acute distress. HEAD: Normocephalic, atraumatic. EYES: PERRLA and EOMI. ENT: Nares clear, no rhinorrhea or epistaxis. Mucous membranes moist. NECK: Supple. CHEST: Clear to auscultation. No respiratory distress. HEART: Regular rate and rhythm. No murmur heard. Normal peripheral pulses. ABDOMEN: Soft, nontender, nondistended, normal active bowel sounds. EXTREMITIES: Normal range of motion. No edema. SKIN: Warm, dry, no rash. NEURO: No focal deficits. Alert and oriented x3. PSYCH: Normal mood and affect. Course Vital Signs Vital signs: Vital Signs Temperature 36.8 C 05/22/24 01:00 Pulse Rate 106 H 05/22/24 01:00 Respiratory Rate 16 05/22/24 01:00 Blood Pressure 121/82 05/22/24 01:00 Pulse Oximetry 98 05/22/24 01:00 Oxygen Delivery Room Air 05/22/24 01:00 Temperature 36.8 C 05/22/24 01:00 Pulse Rate 106 H 05/22/24 01:00 Respiratory Rate 16 05/22/24 01:00 Blood Pressure 121/82 05/22/24 01:00 Pulse Oximetry 98 05/22/24 01:00 Oxygen Delivery Room Air 05/22/24 01:00 Medical Decision Making MDM Narrative Medical decision making narrative: Differential diagnosis includes strep pharyngitis, COVID flu, RSV strep was negative COVID flu and RSV was sent the patient was positive for COVID-19 Vital Signs Vital Signs: Vital Signs Temperature 36.8 C 05/22/24 01:00 Pulse Rate 106 H 05/22/24 01:00 Respiratory Rate 16 10/0
[2024-05-22 02:15] LABS: Influenza A QL RT-PCR Negative (Negative); Influenza B QL RT-PCR Negative (Negative); RSV RNA, RT-PCR Negative (Negative); SARS-CoV-2 RNA PCR Positive (Negative)
== END 2024-05-22 02:54 | disposition home or self-care (01) ==
PROVIDERS: Emergency Provider Emergency Medicine; PCP Internal Medicine
DX: U07.1 COVID-19 (principal); J06.9 Acute upper respiratory infection, unspecified; F41.9 Anxiety disorder, unspecified
CPT/HCPCS: 87637; 87651; 99283

== ENCOUNTER 2024-06-25 18:34 | Outpatient (CLI) | payer MEDICAID, SELFPAY ==
[2024-06-25] VITALS (7 sets, daily range): BP systolic 88–124; BP diastolic 36–70; PULSE 68–88; BMI 35.4
[2024-06-25 19:18] LABS: Basophils Absolute Auto 0.1 K/mm3 (0.0-0.1); Basophils Percent Auto 0.4 % (0.2-1.2); Eosinophils Absolute Auto 0.3 K/mm3 (0-0.3); Eosinophils Percent Auto 1.8 % (0-4.4); Hematocrit 34.3 % (37.0-47.0); Hemoglobin 11.4 g/dL (12.0-15.0); Immature Granulocyte Percent A 3.1 % (0-0.5); Lymphocytes Absolute Auto 4.81 K/mm3 (0.9-3.2); Mean Corpuscular HGB Conc 33.2 g/dl (32-36); Mean Corpuscular Hemoglobin 29.8 pg (26-34); Mean Corpuscular Volume 89.8 fl (80-100); Mean Platelet Volume 10.3 fl (7.4-10.4); Monocytes Absolute Auto 1.1 K/mm3 (0.1-0.6); Monocytes Percent Auto 6.7 % (2.6-8.5); Neutrophils Absolute Auto 9.3 K/mm3 (1.3-6.7); Platelet Count Result 254 k/mm3 (150-375); Red Blood Count 3.82 M/mm3 (4.2-5.4); Red Cell Distribution Width 13.2 % (11.5-14.5)
[2024-06-25 19:22] LABS: Add Urine Microscopic? YES; Appearance Urine Clear (Clear); Bacteria Urine None Seen /hpf; Bilirubin Urine Negative (Negative); Blood Urine 3+ (Negative); Color Urine Yellow (Yellow); Glucose Urine UA Negative (Negative); Ketones Urine Negative (Negative); Leukocyte Esterase Ur Trace LEU/UL (Negative); Nitrate Urine Negative (Negative); Non Pathogenic Casts 0-2; Protein Urine Negative (Negative); RBC Urine 51-100 /hpf (0-2); Specific Grav Ur 1.008 (1.001-1.035); Squamous Epithelial Cell Urine None Seen /hpf (Few); Urobilinogen Urine 0.2 mg/dL (<2.0); WBC Urine 0-5 /hpf (0-3)
[2024-06-25 19:24] LABS: Creatinine Urine 49.3 mg/dL; Total Protein Urine Random 21 mg/dL; Ur Ttl Prot Creatinine Ratio 0.43 mg/mg (0-0.20)
[2024-06-25 19:28] LABS: Alanine Aminotransferase 19 U/L (6-35); Albumin Level 3.9 g/dL (3.5-5.1); Alkaline Phosphatase 115 U/L (38-126); Anion Gap 12 mmol/L (4-12); Aspartate Amino Transferase 27 U/L (14-36); Bilirubin,Total 0.3 mg/dL (0.2-1.3); Blood Urea Nitrogen 8 mg/dL (7-17); Calcium 9.3 mg/dL (8.4-10.2); Carbon Dioxide 18 mmol/L (22-30); Chloride 104 mmol/L (98-107); Estimated CRCL calculation 136 ml/min; Estimated Glomerular Filt Rate > 60; Glucose 101 mg/dL (65-110); Potassium 3.5 mmol/L (3.4-5.0); Sodium 134 mmol/L (137-145); Uric Acid 5.2 mg/dL (2.5-7.5)
--- NOTE | 2024-06-25 20:17 | PC.NURSE ---
Called Dr. Santos with pt lab results. Orders received to discharge pt with 24 hour urine supplies and instructions.
== END 2024-06-25 20:35 | disposition home or self-care (01) ==
LOC: ANHOBOP 18:39 → ANHOBPP 18:41
PROVIDERS: PCP Internal Medicine; Visit Provider Student in an Organized Health Care Education/Training Program
DX: H53.8 Other visual disturbances (principal)
CPT/HCPCS: 36415; 59025; 80053; 81001; 82570; 84156; 84550; 85025

== ENCOUNTER 2024-06-26 21:12 | Outpatient (CLI) | payer MEDICAID, SELFPAY ==
[2024-06-26 22:46] VITALS: BMI 35.9
[2024-06-26 23:08] LABS: Collection Time Urine 24 HOURS
[2024-06-26 23:21] LABS: Patient Weight 190 Lbs; Total Protein Urine Random 18 mg/dL
[2024-06-26 23:34] LABS: Creatinine Clearance Urine 144.2 ml/min (75-125); Total Protein Urine 24 Hr 297 mg/24hr (28-141); Total Volume 24 Hour Urine 1650 ml
== END 2024-06-26 21:13 | disposition home or self-care (01) ==
LOC: ANHOBOP 22:25
PROVIDERS: Obstetrics & Gynecology; PCP Internal Medicine; Visit Provider Student in an Organized Health Care Education/Training Program
DX: O13.9 Gestational [pregnancy-induced] hypertension without significant proteinuria, unspecified trimester (principal)
CPT/HCPCS: 80048; 80076; 81050; 82575; 84156

== ENCOUNTER 2024-07-10 15:33 | Observation (INO) | payer MEDICAID, SELFPAY ==
[2024-07-10 16:00] VITALS: BP 97/61; PULSE 65; RESP 18; TEMP 36.3; BMI 36.5
--- NOTE | 2024-07-10 16:00 | OBADM ---
This patient, Ira Acuna, admitted to the OB room 120 for observation for contractions. Patient/family oriented to hospital policies and general routines including ID bracelet, bed and alarms, visiting hours, pain management, procedures, bathroom and other care routines, personal items, smoking policy, room service/diet, and visiting hours. Patient/Family are encouraged to report perceived risks to care and to ask questions if they do not understand what they are told or what they should do.
[2024-07-10 17:38] VITALS: BP 116/72; PULSE 61
[2024-07-10] MEDS: TERBUTALINE SULFATE 1 MG/ML VIAL 0.25 MG SUB-Q ×2 (17:41→18:54)
[2024-07-10 18:08] VITALS: BP 118/57; PULSE 74
[2024-07-10 18:53] VITALS: BP 112/62; PULSE 74
[2024-07-10 19:00] VITALS: BP 89/58; PULSE 76
[2024-07-10 19:04] VITALS: BP 112/60; PULSE 75
[2024-07-10 19:12] LABS: OBXCEM ROM Plus Negative (Negative)
--- NOTE | 2024-07-10 19:52 | PC.NURSE ---
Called Dr. Santos, update on pt, two doses of terbutaline, contractions, and pain of 2 out of 10. Orders received to discharge pt with instructions to keep next scheduled appointment and when to return to the unit.
--- NOTE | 2024-07-10 20:31 | PC.NURSE ---
Pt discharged with instructions to keep next scheduled appointment and when to return to the unit, pt verbalizes understanding.
--- NOTE | 2024-07-10 20:41 | PM.OBTRLD ---
OB - Triage/Final Diagnosis Visit Information Date of evaluation: 07/10/24 Reason for evaluation: threatened labor Comments/Additional reasons for admission: I have assessed the risk for this patient, Ira Acuna, and determined that she would benefit from observation care. Evaluation Laboratory results: Laboratory Tests 07/10/24 16:30 Membranes Rupture Rom plus negative Vital signs: Vital Signs - 24 hr 07/10/24 17:38 07/10/24 18:08 07/10/24 18:53 Temperature Pulse Rate 61 74 74 Respiratory Rate Blood Pressure 116/72 118/57 L 112/62 07/10/24 19:00 07/10/24 19:04 07/10/24 16:00 Temperature 97.4 F L Pulse Rate 76 75 Respiratory Rate 18 Blood Pressure 89/58 L 112/60 07/10/24 16:00 Temperature 97.4 F L Pulse Rate 65 Respiratory Rate 18 Blood Pressure 97/61 L
== END 2024-07-10 20:31 | disposition home or self-care (01) ==
PROVIDERS: Admitting Provider Student in an Organized Health Care Education/Training Program; PCP Internal Medicine; Visit Provider Student in an Organized Health Care Education/Training Program
DX: O47.03 False labor before 37 completed weeks of gestation, third trimester (principal); Z3A.36 36 weeks gestation of pregnancy
CPT/HCPCS: 84112; 96372; G0378; G0379; J3105

== ENCOUNTER 2024-07-24 08:36 | Outpatient (CLI) | payer MEDICAID, SELFPAY ==
[2024-07-24 10:14] LABS: Basophils Absolute Auto 0.1 K/mm3 (0.0-0.1); Basophils Percent Auto 0.5 % (0.2-1.2); Eosinophils Absolute Auto 0.3 K/mm3 (0-0.3); Eosinophils Percent Auto 2.1 % (0-4.4); Hematocrit 35.7 % (37.0-47.0); Hemoglobin 11.5 g/dL (12.0-15.0); Immature Granulocyte Absolute 0.27 K/mm3 (0.00-0.031); Immature Granulocyte Percent A 2.2 % (0-0.5); Lymphocytes Absolute Auto 2.93 K/mm3 (0.9-3.2); Lymphocytes Percent Auto 24.3 % (18.3-44.2); Mean Corpuscular HGB Conc 32.2 g/dl (32-36); Mean Corpuscular Hemoglobin 28.8 pg (26-34); Mean Corpuscular Volume 89.5 fl (80-100); Mean Platelet Volume 11.1 fl (7.4-10.4); Monocytes Absolute Auto 0.8 K/mm3 (0.1-0.6); Monocytes Percent Auto 6.6 % (2.6-8.5); Neutrophils Absolute Auto 7.8 K/mm3 (1.3-6.7); Neutrophils Percent Auto 64.3 % (45.5-73.1); Platelet Count Result 239 k/mm3 (150-375); Red Blood Count 3.99 M/mm3 (4.2-5.4); Red Cell Distribution Width 13.9 % (11.5-14.5); White Blood Count 12.1 K/mm3 (4.5-10.0)
[2024-07-24 11:02] LABS: HIV 1/2 Ab P24 Ag Result Negative (Negative)
[2024-07-25 07:03] LABS: Rapid Plasma Reagin Non-Reactive (NonReactive)
== END 2024-07-24 08:37 | disposition home or self-care (01) ==
PROVIDERS: PCP Internal Medicine; Visit Provider Student in an Organized Health Care Education/Training Program
DX: Z34.93 Encounter for supervision of normal pregnancy, unspecified, third trimester (principal); Z3A.00 Weeks of gestation of pregnancy not specified
CPT/HCPCS: 36415; 85025; 86592; 86703; 86850; 86900; 86901; G0432

== ENCOUNTER 2024-07-25 05:13 | Inpatient (IN) | payer MEDICAID, SELFPAY ==
--- NOTE | 2024-07-24 12:39 | PM.IMHP ---
H&P: HPI History of Present Illness Date/Time: 07/24/24 12:39 Chief Complaint: Intrauterine at term h/o x1 Narrative: 29 yo at 39w0d who presents for repeat with bilateral tubal ligation. Her history is significant for depression on escitalopram and migraines. She desires permanent sterilization at the time of repeat . Review of Systems Cardiovascular: Cardiovascular: Denies chest pain, Denies leg edema, Denies palpitations, Denies dyspnea and Denies dyspnea on exertion Respiratory: Respiratory: Denies cough, Denies dyspnea and Denies dyspnea on exertion Gastrointestinal: Gastrointestinal: Denies abdominal pain, Denies constipation, Denies diarrhea, Denies nausea and Denies vomiting Genitourinary: Genitourinary: Denies hematuria, Denies urinary frequency, Denies dysuria, Denies pelvic pain, Denies urinary incontinence and Denies vaginal discharge Neurologic: Reports system reviewed and no additional complaints, except as documented Psychiatric: Psychiatric: Reports no additional psychiatric complaints Endocrine: Endocrine: Denies palpitations PMFSH Past Medical History Medical History Anxiety Migraine Surgical History Surgical History History of tonsillectomy Family History Family History Mother Hypothyroidism Carcinoma of colon Ovarian cancer Social History Social History Smoking packs per day: 0.5 Smoking cigarettes per day: 10.0 Smoking status: Former smoker Tobacco type: cigarettes Alcohol intake: never Substance use: never Substance use type: does not use Do You Feel Safe in your Home?: Yes Lack of Transportation: No Lack of Food: Never True Current Housing: I Have Housing Concerned About Future Housing: No Difficulty Paying Gas/Electric Bills: No Difficulty Paying for Meds: No Currently Unemployed: No Education: High School Diploma/GED Difficulty w/ Childcare or Family Care: No Living arrangements: with family Additional living arrangements comments: + kids Occupation/Education: occupation Gender identity (if verbalized by the patient): Female Sexual Orientation (if Verbalized by the Patient): Straight or Heterosexual Spiritual care concerns: No Meds Home Medications and Allergies Home Medications ?Medication ?Instructions ?Recorded ?Confirmed ?Type vits no.126-ferrous fum 1 tablet PO DAILY 02/08/24 07/18/24 History 28 mg iron-folic acid 800 mcg tablet (Classic ) Allergies Allergy/AdvReac Type Severity Reaction Status Date / Time No Known Allergies Allergy Unknown Verified 07/18/24 10:35 Exam Const: General: no acute distress Eyes: EOM: EOMs intact bilaterally Neck: Neck: supple Thyroid: thyroid normal Chest: Breast/axilla inspection: normal inspection of the breasts Breast/axilla palpation: normal palpation of the breasts, normal palpation of the axillae and no axillary lymphadenopathy Resp: Effort & Inspection: normal respiratory effort Auscultation: clear to auscultation bilaterally Cardio: Rate: regular rate Rhythm: regular rhythm GI: Inspection: non-distended and other (Gravid) GI Palp: Yes Soft to palpation, No Tenderness to palpation present (GI) and No Guarding due to palpation present (GI) Auscultation: normal bowel sounds : Speculum Exam - Vagina: No vaginal bleeding OB/external & speculum: external exam normal; No vaginal bleeding Skin: General skin exam: normal color and no rashes or lesions noted Neuro: Cognition (Neuro): normal cognition Speech: normal speech Extrem: General: normal to inspection Psych: Mental Status: mental status grossly normal Affect: normal affect Assessment and Plan Assessment and plan (1) Intrauterine : Code(s): Z34.90 - Encounter for supervision of normal , unspecified, unspecified trimester Status: Acute Assessment and Plan: -h/o x1- plan for repeat on 07/25/24 -depression- escitalopram -former tobacco user -migraines- stopped amitriptyline, Topamax, sumatriptan - Desire for sterilization; [place] form signed 03/28/24 (2) History of : Code(s): Z98.891 - History of uterine scar from previous surgery Status: Acute Assessment and Plan: will plan for repeat (3) Encounter for sterilization: Code(s): Z30.2 - Encounter for sterilization Status: Acute Assessment and Plan: patient desires permanent sterilization risks, benefits, and alternatives discussed consent signed will plan for bilateral salpingectomy at the time of repeat
[2024-07-25] VITALS (41 sets, daily range): BP systolic 101–132; BP diastolic 61–102; PULSE 56–85; RESP 16–19; TEMP 36.4–37.4; O2SAT 98–100; BMI 37.8
--- NOTE | 2024-07-25 05:53 | LDADM ---
This patient, Ira Acuna, was admitted to Labor/Delivery/Recovery 120 on 07/25/24 at 05:13. Plans for labor, pain management and were discussed with patient. Patient/family oriented to hospital policies and general routines including ID bracelet, bed and alarms, visiting hours, pain management, procedures, bathroom and other care routines, personal items, smoking policy, room service/diet and guest tray routines, security routines, and visiting hours. Patient/Family are encouraged to report perceived risks to care and to ask questions if they do not understand what they are told or what they should do. See [facility] for further documentation.
[2024-07-25] MEDS: ACETAMINOPHEN 500 MG TABLET 1000 MG PO (06:09)
[2024-07-25] MEDS: LACTATED RINGERS 1,000 ML 125 ML IV CONT ×2 (06:10→07:06)
[2024-07-25] MEDS: FAMOTIDINE 20 MG/2 ML VIAL IV PUSH (07:06)
[2024-07-25] MEDS: ONDANSETRON INJ 4 MG/2 ML VIAL IV PUSH (07:06)
--- NOTE | 2024-07-25 07:13 | P.PNAN_ITS ---
Anes - Initial Pre Proc Eval Procedure: Operation Date: 07/25/24 07:30 Proposed Procedures p Repeat Section with Tubal Ligation - Yordan Santos MD Date/Time: 07/25/24 07:13 Surgeon: Yordan Santos MD Pre Op Diagnosis: prior , Desires Sterilization Patient Data Age: 29 Gender: F Height: 1.55 m Weight: 90.9 kg Last Vital Signs Pulse 67 07/25/24 06:36 BP 117/65 07/25/24 06:36 Pulse Ox 99 07/25/24 05:59 O2 Del Method Room Air 07/25/24 05:50 Allergies Allergy/AdvReac Type Severity Reaction Status Date / Time No Known Allergies Allergy Unknown Verified 07/25/24 06:28 Home Medications ?Medication ?Instructions ?Recorded ?Confirmed ?Type vits no.126-ferrous fum 1 tablet PO DAILY 02/08/24 07/25/24 History 28 mg iron-folic acid 800 mcg tablet (Classic ) Patient hx anesthesia problems: none Family hx anesthesia problems: none Results Review: All pre-operative results and documents have been reviewed as part of the pre- operative evaluation. [facility] Past Medical History Medical History Anxiety Migraine Surgical History Surgical History History of tonsillectomy Family History Family History Mother Hypothyroidism Carcinoma of colon Ovarian cancer Social History Social History Smoking packs per day: 0.5 Smoking cigarettes per day: 10.0 Smoking status: Former smoker Tobacco type: cigarettes Alcohol intake: never Substance use: never Substance use type: does not use Do You Feel Safe in your Home?: Yes Lack of Transportation: No Lack of Food: Never True Current Housing: I Have Housing Concerned About Future Housing: No Difficulty Paying Gas/Electric Bills: No Difficulty Paying for Meds: No Currently Unemployed: No Education: High School Diploma/GED Difficulty w/ Childcare or Family Care: No Living arrangements: with family Additional living arrangements comments: + kids Occupation/Education: occupation Gender identity (if verbalized by the patient): Female Sexual Orientation (if Verbalized by the Patient): Straight or Heterosexual Spiritual care concerns: No Anes - Eval Final PreProcedure Day of Procedure 07/25/24 07:13 Patient weight: obese Heart: regular rate and rhythm Lungs: clear to auscultation Airway: Mallampati scale class II Neurological: alert and oriented Last oral intake: >/= 8 hours ASA classification: II Emergent: no Anesthetic plan: proceed Anesthesia type and monitoring: regional spinal and standard monitoring Results Review: All pre-operative results and documents have been reviewed as part of the pre- operative evaluation. Informed Consent: The patient's anesthetic plan and its attendant risks and benefits were discussed with the patient/family/POA. Questions were solicited and answers provided to the satisfaction of the patient/family/POA.
--- NOTE | 2024-07-25 07:16 | WPDHPUPDATE1 ---
History and Physical Update Update Date/Time: 07/25/24 07:16 History and Physical has been reviewed, including an updated exam of the patient. There are NO changes in the patient's condition. Risks, benefits, and alternatives have been discussed and questions answered. Patient agrees to proceed with procedure.
[2024-07-25] MEDS: ceFAZolin 2 GM/D5W 50 ML 2 GM/50 ML BAG IVPB (07:25)
--- NOTE | 2024-07-25 08:31 | P.PCNOB_ITS ---
OB - Delivery Note Procedure Delivery date: 07/25/24 Pre-op diagnosis: Previous Delivery Post-op Diagnosis: Same Induction method: None Delivery monitor: External FHT Prior to decision for section, ACOG/SM labor guidelines were considered and discussed with the patient and staff. Decision made to proceed with the section.: Yes Procedure Performed: Repeat Secondary branch: low cervical, transverse and Tubal Ligation Surgeon: Yordan Santos MD Anesthesia type: Spinal Description of Procedure/Findings: The patient was taken to the operating room where epidural anesthesia was found to be adequate. She was then prepped and draped in the usual sterile fashion in the dorsal supine position with a leftward tilt. A Pfannenstiel skin incision was then made with the scalpel and carried through to the underlying layer of fascia. The fascia was then incised in the midline and the incision extended laterally with the Abarca scissors. The superior aspect of the fascia was then grasped with the Kit clamps, elevated, and the underlying rectus muscles dissected off bluntly and sharply. Attention was then turned to the inferior aspect of this incision which, in a similar fashion, was grasped, tented up with the Kit clamps, and the rectus muscles dissected off both bluntly and sharply. The rectus muscles were then in the midline, and the peritoneum identified, tented up, and entered sharply with the Metzenbaum scissors. The peritoneal incision was then extended superiorly and inferiorly with good visualization of the bladder. The Mobius ring retractor was placed for better visualization. The lower uterine segment incised in a low, transverse fashion with the scalpel. The uterine incision was then extended laterally bluntly. The bladder blade was removed and the ?s head delivered atraumatically. The nose and mouth were suctioned with the bulb suction, and the remainder of the was delivered atraumatically. The cord was clamped and cut. The infant was handed off to the waiting pediatricians (staff). Cord gasses were sent. The placenta was then removed manually, the uterus exteriorized, and cleared of all clots and debris. The uterine incision was repaired with 0 monocryl in a running fashion. Both fallopian tubes were identified and followed out to the fimbriae bilaterally. The left fallopian tube was grasped with Babcocks and elevated to identify an avascular space in the mesosalpinx. The inferior mesosalpinx was then ligated and transected with the ligasure device. The the fallopian tube was then ligated and transected at the uterine corpus. Good hemostasis was noted. The same procedure was repeated for the right fallopian tube. The uterus was returned to the abdomen. The ring retractor was removed. The uterus was then reinspected to ensure hemostasis as were all subfascial tissues. Surgicell powder was placed on the hysterotomy. The peritoneum was re-approximated with 3-0 vicryl in a running fashion. The fascia was reapproximated with 0 vicryl in a running fashion. The subcutaneous layer was copiously irrigated to clear any clots or debris. The subcutaneous tissue was reapproximated using 3-0 Vicryl in a running fashion. The skin was closed with 3-0 monocryl. The patient tolerated the procedure well. Sponge, lap and needle counts were correct times three. The patient was taken to the recovery room in stable condition. Specimen: No Estimated Blood Loss: 470 Drains: No Packing: No Pathology: None sent Complications: No immediate complications Condition: Stable Disposition: Floor [place] Baby Date of : 07/25/24 Time of : 07:52 Gestational Age by Date: 39 gender: Female Weight (pounds): 6 Weight (ounces): 1 presentation: vertex Placenta delivery description: Manual Removal Cord Vessel Description: 3 Vessels score one minute: 8 score five minutes: 9
[2024-07-25] MEDS: OXYTOCIN 30 UNITS/NS 500 ML 30 UNITS/500 ML BAG 125 UNITS IV CONT (09:14)
--- NOTE | 2024-07-25 10:56 | OBPPTRN ---
Patient transferred to post room #281 via stretcher. Support person present. Oriented to unit, room, information board, rooming in, admission packet and security measures. Patient verbalizes understanding.
[2024-07-25] MEDS: LIDOCAINE 5% PATCH 1 PATCH TRANSDERM (11:45)
[2024-07-25] MEDS: KETOROLAC 15 MG/ML VIAL (*BKC) IV PUSH ×2 (11:45→17:36)
[2024-07-25] MEDS: ACETAMINOPHEN 325 MG TABLET 650 MG PO ×2 (11:45→17:36)
[2024-07-25] MEDS: SIMETHICONE 80 MG TAB.CHEW PO ×2 (11:46→17:38)
[2024-07-25] MEDS: diphenhydrAMINE HCl CAP 25 MG CAPSULE PO (13:45)
[2024-07-25] MEDS: DOCUSATE SODIUM 100 MG CAPSULE PO (17:38)
[2024-07-26] MEDS: KETOROLAC 15 MG/ML VIAL (*BKC) IV PUSH ×2 (00:01→04:41)
[2024-07-26 00:07] VITALS: BP 97/58; PULSE 78; RESP 18; TEMP 37.1; O2SAT 98
[2024-07-26] MEDS: ACETAMINOPHEN 325 MG TABLET 650 MG PO ×4 (04:41→17:30)
[2024-07-26 04:42] VITALS: BP 102/67; PULSE 64; RESP 18; TEMP 36.3; O2SAT 100
[2024-07-26 05:17] LABS: Basophils Absolute Auto 0.1 K/mm3 (0.0-0.1); Basophils Percent Auto 0.3 % (0.2-1.2); Eosinophils Absolute Auto 0.3 K/mm3 (0-0.3); Eosinophils Percent Auto 1.9 % (0-4.4); Hematocrit 31.6 % (37.0-47.0); Hemoglobin 10.2 g/dL (12.0-15.0); Immature Granulocyte Absolute 0.32 K/mm3 (0.00-0.031); Immature Granulocyte Percent A 2.1 % (0-0.5); Lymphocytes Absolute Auto 3.03 K/mm3 (0.9-3.2); Mean Corpuscular HGB Conc 32.3 g/dl (32-36); Mean Corpuscular Hemoglobin 28.7 pg (26-34); Mean Platelet Volume 10.8 fl (7.4-10.4); Monocytes Absolute Auto 1.1 K/mm3 (0.1-0.6); Monocytes Percent Auto 7.3 % (2.6-8.5); Neutrophils Absolute Auto 10.4 K/mm3 (1.3-6.7); Neutrophils Percent Auto 68.4 % (45.5-73.1); Platelet Count Result 215 k/mm3 (150-375); Red Blood Count 3.55 M/mm3 (4.2-5.4); White Blood Count 15.1 K/mm3 (4.5-10.0)
--- NOTE | 2024-07-26 07:42 | WPDANLDPN2 ---
Anes-Prog Note L&D Date/Time: 07/26/24 07:42 Comfortable throughout: section Neuraxial method: spinal Epidural/Spinal procedure site: clean & non-tender Neuro status: Neuro function grossly intact. Cardiovascular status: normal Respiratory status: normal Airway patency: baseline Mental status: baseline Post-Op hydration status: normal Vital Signs: Last Vital Signs Temp 97.4 F L 07/26/24 04:42 Pulse 64 07/26/24 04:42 Resp 18 07/26/24 04:42 BP 102/67 07/26/24 04:42 Pulse Ox 100 07/26/24 04:42 O2 Del Method Room Air 07/25/24 15:10 Pain score (VAS): 0/10 I/O: Intake & Output 07/25/24 07/25/24 07/26/24 15:59 23:59 07:59 Intake Total 2000 240 500 Output Total 900 500 550 Balance 1100 -260 -50 Post-procedural complaints: none Patient feedback: Patient satisfied with anesthetic care.
--- NOTE | 2024-07-26 07:43 | WPDANLDNPN2 ---
Anes-Prog Note L&D-Neuraxial Date/Time: 07/26/24 07:43 Neuraxial medications: intrathecal PF morphine Opiod-related complaints: none Patient feedback: Patient satisfied with post-operative pain management.
--- NOTE | 2024-07-26 07:44 | P.PNOB_ITS ---
OB - PN: Subj Subjective Date/time seen: 07/26/24 07:44 Patient comments: no complaints, pain well controlled, tolerating diet and flatus present OB - PN: Obj Data Labs 07/26/24 04:27 Labs: Laboratory Results - last 24 hr 07/26/24 04:27 WBC 15.1 H RBC 3.55 L Hgb 10.2 L Hct 31.6 L MCV 89.0 MCH 28.7 MCHC 32.3 RDW 14.0 Plt Count 215 MPV 10.8 H Immature Gran % (Auto) 2.1 H Neut % (Auto) 68.4 Lymph % (Auto) 20.0 [place] % (Auto) 7.3 Eos % (Auto) 1.9 Baso % (Auto) 0.3 Lymph # (Auto) 3.03 [place] # (Auto) 1.1 H Eos # (Auto) 0.3 Baso # (Auto) 0.1 Abs Immat Gran (auto) 0.32 H Absolute Neuts (auto) 10.4 H Absolute Nucleated RBC 0.000 Nucleated RBC % 0.0 OB - PN A/P Plan day: 1 Plan: routine care Comments: patient doing well H/H 10. afebrile, VSS incision C/D/I costa removed, voiding spontaneously continue routine post op care Time Spent With Patient Time: Total time spent is greater than 50% in coordination of care (as documented) at patient's floor/unit and/or counseling patient: Time with patient: less than 15 minutes Review of Systems 2 Constitutional: Constitutional: Reports no additional constitutional complaints Cardiovascular: Cardiovascular: Reports no additional cardiovascular complaints Respiratory: Respiratory: Reports no additional respiratory complaints Gastrointestinal: Gastrointestinal: Reports no additional gastrointestinal complaints Genitourinary: Genitourinary: Reports no additional female genitourinary complaints Exam 2 Const: General: comfortable and no acute distress Resp: Effort & Inspection: normal respiratory effort Auscultation: clear to auscultation bilaterally Cardio: Rate: regular rate GI: GI Palp: Yes Soft to palpation, Yes Tenderness to palpation present (GI) (around incision ) and No Guarding due to palpation present (GI) A uscultation: normal bowel sounds Other: incision C/D/I, covered with Dermabond Psych: Appearance: grossly normal Mental Status: mental status grossly normal Affect: normal affect
[2024-07-26 07:55] VITALS: BP 104/52; PULSE 62; RESP 18; O2SAT 100
[2024-07-26] MEDS: MULTIVIT/MIN/PREN/FOL AC/IRON TABLET 1 TAB PO (08:52)
[2024-07-26] MEDS: DOCUSATE SODIUM 100 MG CAPSULE PO ×2 (08:52→17:30)
[2024-07-26] MEDS: SIMETHICONE 80 MG TAB.CHEW PO ×3 (08:52→17:30)
--- NOTE | 2024-07-26 10:01 | PM.OBDSVD ---
DS: Admitting Diagnosis Discharge Date Admitting Diagnosis intrauterine at term prior x 1 desires permanent sterilization DS: Discharge Diagnosis Discharge Diagnosis (1) Delivery by section: Status: Acute (2) Encounter for sterilization: Code(s): Z30.2 - Encounter for sterilization Status: Acute OB - DS: Summary OB Procedures : None OB Procedures Intrapartum: and Tubal ligation OB Procedures: : None Peripartum Data Infant Delivery Method: Section Procedures: Procedures Operation Date: 07/25/24 07:30 Actual Procedure Side Surgeon p Repeat Section with Tubal Ligation Bilateral Yordan Santos MD complications: none Status at Discharge Functional status at discharge: independent ambulation Overall status at discharge: patient is progressing back to baseline Time Spent with Patient Time attestation: Total time spent providing and/or coordinating discharge services: Time spent: Less than 30 minutes Exam Const: General: comfortable and no acute distress Resp: Effort & Inspection: normal respiratory effort Auscultation: clear to auscultation bilaterally Cardio: Rate: regular rate GI: Inspection: non-distended GI Palp: Yes Soft to palpation, No Firmness to palpation present (GI), Yes Tenderness to palpation present (GI) (mild tenderness over incision ) and No Guarding due to palpation present (GI) Auscultation: normal bowel sounds Psych: Appearance: grossly normal Mental Status: mental status grossly normal DS: Data Data Completed and Pending Pending studies at discharge: Pending at discharge 07/25/24 08:04 Surgical [PTH] Routine Labs on day of discharge: Labs from last 24 hours 07/26/24 04:27 WBC 15.1 H RBC 3.55 L Hgb 10.2 L Hct 31.6 L MCV 89.0 MCH 28.7 MCHC 32.3 RDW 14.0 Plt Count 215 MPV 10.8 H Immature Gran % (Auto) 2.1 H Neut % (Auto) 68.4 Lymph % (Auto) 20.0 [place] % (Auto) 7.3 Eos % (Auto) 1.9 Baso % (Auto) 0.3 Lymph # (Auto) 3.03 [place] # (Auto) 1.1 H Eos # (Auto) 0.3 Baso # (Auto) 0.1 Abs Immat Gran (auto) 0.32 H Absolute Neuts (auto) 10.4 H Absolute Nucleated RBC 0.000 Nucleated RBC % 0.0 Discharge Plan Discharge Discharging Clinician: Yordan Santos Patient Disposition: Home, Self-Care Activity: as tolerated and pelvic rest Diet: regular Patient Instructions: Antibiotic Form, (DC) Patient Language: Serbian Stand Alone Forms: General Discharge Information Follow-up/Referrals: Yordan Santos MD [Physician] - Discharge Medications: New oxycodone-acetaminophen 5-325 mg tablet 1 tablet PO Q6H PRN (Reason: pain) Qty: 28 0RF ibuprofen 600 mg tablet 600 mg PO Q6H PRN (Reason: pain) Qty: 30 0RF No Action Classic 28 mg iron- 800 mcg tablet 1 tablet PO DAILY Date of admission: 07/25/24 05:13 Primary Care Provider: Pratik,Chester Atkinson Admitting Provider: Yordan Santos Attending physician on admission: Yordan Santos Condition: Stable
[2024-07-26 10:40] VITALS: TEMP 36.8
[2024-07-26] MEDS: IBUPROFEN 600 MG TABLET PO ×2 (11:26→17:30)
--- NOTE | 2024-07-26 11:57 | PC.NURSE ---
0930 Introductions were made, then consulted with patient to assess needs related to . Discussed with mother her?plans to feed?her infant and the?experience so far. Per mother, both nipples are sore and RN saw slight bruising on both, per mother when baby latches she feels more pinching then tugging and pulling and baby does not open her mouth very wide. Mother also requested information regarding pumping when she goes back to work, RN gave handouts and instructions given on cleaning, care, usage, that there should be no pain, pumping schedule for milk production, collection, and storage of human milk. Mother voiced understanding of the education shared along with mom/baby guide and the pump measurement, flange fit handout for additional resource information. Resources provided for inpatient and outpatient services with the feeding sheet, mom/baby guide and name written on the communication board. Mother voiced understanding of information and will call if there is a request for assistance. RN requested that mother call with the next feeding to assess the latch and feeding, mother agreed. Reported to the Primary RN. 1051 We reviewed working with the , supporting breast, protecting her nipples with an optimal deep latch, good positioning, and good hand washing. Encouraged understanding the benefits of skin to skin, responding to feeding cues, frequencies of feeding 8-12 times in 24 hours (approximately 2-3 hours), duration of feedings, milk production, intake/output feeding sheet and signs of adequate intake encouraging swallowing at the breast. Reviewed positioning and alignment, supporting breast, off-centered (asymmetrical latch) and leading with the chin with big, open, wide gape. latched optimally to the [left] breast in [cross cradle] position. Education given to the mother of how to visualize the suckling (with good rocking jaw motion) swallows (dropping of the lower jaw) and how to listen for drinking at the breast (the ka sound). The infant was [able] to maintain latch without discomfort to mother. Nipple care reviewed with optimal latch, good positioning and using clean hands when touching her breast. Resources used to facilitate learning were used from the [visual handouts/ tool/mom and baby guide]. Mother voiced understanding of the education shared, to call for assistance if the does not latch or if there is discomfort with . [facility] Referral form to be completed and placed on mother's chart for faxing on day of discharge. Reported to the Primary RN.
--- NOTE | 2024-07-26 17:06 | PC.NURSE ---
1700. Went in to discuss WIC form and have mom sign the referral form. Mom independently latched infant and feeding at this time with appropriate positioning and alignment. She denies any nipple discomfort. Mother declines any additional assistance or education at this time. Mother is encouraged to call for assistance if her doesn?t latch, pain with latching, questions or concerns. Mother voiced understanding of information shared along with the mom/baby guide for an additional resource. Reported to the Primary RN.
[2024-07-26 21:58] VITALS: BP 104/57; PULSE 77; RESP 16; TEMP 36.5; O2SAT 98
[2024-07-27] MEDS: ACETAMINOPHEN 325 MG TABLET 650 MG PO ×2 (00:20→08:51)
[2024-07-27] MEDS: IBUPROFEN 600 MG TABLET PO ×2 (00:20→08:51)
--- NOTE | 2024-07-27 07:48 | PC.NURSE ---
Mother verbalizes she is able to independently latch with appropriate positioning and alignment. She has had some nipple discomfort on her left nipple but is using lanolin and the soothing gel pads, she is responsively , per mother baby cluster fed through the night. is currently meeting outcomes for weight, output, jaundice, blood sugar and feeding frequencies of 8-12 times in 24 hours. Mother declines any additional assistance or education at this time. Mother is encouraged to call for assistance if her doesn?t latch, pain with latching, questions or concerns. Mother voiced understanding of information shared along with the mom/baby guide for an additional resource. Reported to the Primary RN.
[2024-07-27 08:05] VITALS: BP 116/63; PULSE 85; RESP 18; TEMP 36.8; O2SAT 100
[2024-07-27] MEDS: DOCUSATE SODIUM 100 MG CAPSULE PO (08:51)
[2024-07-27] MEDS: MULTIVIT/MIN/PREN/FOL AC/IRON TABLET 1 TAB PO (08:51)
[2024-07-27] MEDS: SIMETHICONE 80 MG TAB.CHEW PO (08:51)
--- NOTE | 2024-07-27 14:04 | PC.NURSE ---
Mother instructed to call Dr. Santos's office to make an appointment for an incision check on . Instructed to keep steri strips on until this appointment. Patient instructed to also be seen at [facility] appointment tomorrow with baby at 0800. Patient verbalizes understanding.
[2024-07-28 08:35] VITALS: BP 127/77; PULSE 73; RESP 20; TEMP 36.9; O2SAT 99
== END 2024-07-27 13:15 | disposition home or self-care (01) | DRG 539 ==
LOC: ANHLDR 05:17 → ANHOB2 10:59
PROVIDERS: Admitting Provider Student in an Organized Health Care Education/Training Program; PCP Internal Medicine; Visit Provider Student in an Organized Health Care Education/Training Program
PROC: 10D00Z1 Extraction of Products of Conception, Low, Open Approach (ICD-10-PCS; CPT 59514; principal; 2024-07-25 07:30)
DX: O34.219 Maternal care for unspecified type scar from previous cesarean delivery (principal); Z30.2 Encounter for sterilization; Z3A.39 39 weeks gestation of pregnancy; Z37.0 Single live birth
CPT/HCPCS: 36415; 85025; 88302; A9270; J0690; J1885; J2274; J2371; J2405; J2590; J7120

== ENCOUNTER 2025-06-23 10:13 | Emergency (ER) | payer OTHER, SELFPAY ==
--- NOTE | ~2025-06-23 | US_ITS ---
ULTRASOUND ABDOMEN LIMITED (RIGHT UPPER QUADRANT) Clinical History: RUQ pain and tenderness Comparison: CT abdomen pelvis 05/23/2021 Technique: Right upper quadrant sonography Findings: Liver: Enlarged. Echogenic. No intrahepatic biliary ductal dilatation. Normal hepatopedal flow main portal vein. Common Duct: Normal caliber. 4 mm. Gallbladder: No stones. No wall thickening. No pericholecystic fluid. Pancreas: Unremarkable. Right kidney: Unremarkable. Retrohepatic IVC: Unremarkable. IMPRESSION: 1. No acute findings. 2. Hepatomegaly, with steatosis. Reviewed, dictated and finalized at location R. [employer]
[2025-06-23 10:19] VITALS: BP 125/66; PULSE 67; RESP 16; TEMP 36.6; O2SAT 97
[2025-06-23 10:30] LABS: BEDSIDEPREGUCG Negative (Negative)
[2025-06-23 10:47] LABS: Hematocrit 41.8 % (37.0-47.0); Hemoglobin 13.8 g/dL (12.0-15.0); Immature Granulocyte Percent A 0.4 % (0-0.5); Lymphocytes Absolute Auto 4.26 K/mm3 (0.9-3.2); Mean Corpuscular HGB Conc 33.0 g/dl (32-36); Mean Corpuscular Hemoglobin 28.7 pg (26-34); Mean Corpuscular Volume 86.9 fl (80-100); Nucleated Red Blood Cells Absolute Auto 0.000 K/mm3 (0.0-0.012); Nucleated Red Blood Cells Perc 0.0 % (0.0-0.2); Platelet Count Result 321 k/mm3 (150-375); Red Blood Count 4.81 M/mm3 (4.2-5.4); White Blood Count 8.1 K/mm3 (4.5-10.0)
--- NOTE | 2025-06-23 10:50 | ED_ITS ---
HPI - General Adult General Chief complaint: Abdominal Pain Stated complaint: lower abdominal and flank pain Time Seen by Provider: 06/23/25 10:20 History of Present Illness HPI narrative: 30-year-old female presenting to the emergency department for evaluation for upper quadrant pain that radiates to her right lower quadrant. Patient reports symptoms have been ongoing since she delivered her child on July of 2024. patient denies any prior history of cholelithiasis or cholecystitis. Patient states she also began having some intermittent bleeding during intercourse that is been ongoing this week. Related Data Home Medications ?Medication ?Instructions ?Recorded ?Confirmed ?Last Taken ?Type sertraline 50 mg tablet 50 mg PO DAILY 08/23/2405/09 Unknown History Allergies Allergy/AdvReac Type Severity Reaction Status Date / Time No Known Allergies Allergy Unknown Verified 06/23/25 10:25 Review of Systems 2 Review of Systems: All systems reviewed & are unremarkable except as noted in HPI and below PMFSH Past Medical History Medical History (Updated 06/23/25 @ 14:54 by Matt Washington MD) Anxiety Migraine Surgical History Surgical History History of History of tonsillectomy Family History Family History Mother Hypothyroidism Carcinoma of colon Ovarian cancer Social History Social History Smoking packs per day: 0.5 Smoking cigarettes per day: 10.0 Tobacco type: cigarettes Alcohol intake: never Substance use: never Substance use type: does not use Do You Feel Safe in your Home?: Yes Lack of Transportation: No Lack of Food: Never True Current Housing: I Have Housing Concerned About Future Housing: No Difficulty Paying Gas/Electric Bills: No Difficulty Paying for Meds: No Currently Unemployed: No Education: High School Diploma/GED Difficulty w/ Childcare or Family Care: No Living arrangements: with family Additional living arrangements comments: + kids Occupation/Education: occupation Gender identity (if verbalized by the patient): Female Sexual Orientation (if Verbalized by the Patient): Straight or Heterosexual Spiritual care concerns: No Exam 2 Narrative: APPEARANCE: Well appearing, no pain, no distress, well-nourished. HEAD: normocephalic, atraumatic. EYES: PERRLA/EOMI, conjunctivae clear. NOSE: Normal no drainage EARS:TMS clear with good light reflex. THROAT: Pharynx clear, no exudate. NECK: Supple. No adenopathy, no masses. RESPIRATORY: Airway patent, respirations nonlabored. Clear to auscultation bilaterally, no rales, rhonchi, wheezing. CARDIOVASCULAR: Regular rate and rhythm without murmurs rubs or gallops. ABDOMINAL: Soft, nontender, nondistended, normal bowel sounds MUSCULOSKELETAL: Moves all extremities. Strength/ROM intact, No edema, No calf tenderness. NEURO: Alert. Cranial nerves II through XII intact. SKIN: Warm, dry. Normal Color Course Vital Signs Vital signs: Vital Signs Temperature 97.9 F 06/23/25 10:19 Pulse Rate 67 06/23/25 10:19 Respiratory Rate 16 06/23/25 10:19 Blood Pressure 125/66 06/23/25 10:19 Pulse Oximetry 97 06/23/25 10:19 Oxygen Delivery Room Air 06/23/25 10:19 Temperature 97.9 F 06/23/25 10:19 Pulse Rate 54 L 06/23/25 13:33 Respiratory Rate 16 06/23/25 13:33 Blood Pressure 113/72 06/23/25 13:33 Pulse Oximetry 100 06/23/25 13:33 Oxygen Delivery Room Air 06/23/25 10:19 Medical Decision Making [facility] Narrative Medical decision making narrative: 30-year-old female presents emergency department for evaluation for right upper quadrant abdominal pain. Patient is currently afebrile and leukocytosis and hemoglobin of 13.8. Patient has mild elevation AST and ALT with no elevation and T bili or lipase. UA was negative for infection. Ultrasound showed no evidence of acute cholecystitis or cholelithiasis. On re-evaluation patient states that she does feel improved. Patient was encouraged of close follow-up with her OB Gyne regarding her spotting during intercourse, patient was also encouraged to have follow-up with her primary care physician for additional outpatient gallbladder testing such as a HIDA scan. Patient was advised to follow a low-fat diet. Patient was also educated on reasons to return to the emergency department. All questions concerns were addressed. Differential Diagnosis Differential Diagnosis: Cholecystitis, biliary colic, hemorrhage, anemia, UTI Vital Signs Vital Signs: Vital Signs Temperature 97.9 F 06/23/25 10:19 Pulse Rate 67 06/23/25 10:19 Respiratory Rate 16 06/23/25 10:19 Blood Pressure 125/66 06/23/25 10:19 Pulse Oximetry 97 06/23/25 10:19 Oxygen Delivery Room Air 06/23/25 10:19 Temperature 97.9 F 06/23/25 10:19 Pulse Rate 54 L 06/23/25 13:33 Respiratory Rate 16 06/23/25 13:33 Blood Pressure 113/72 06/23/25 13:33 Pulse Oximetry 100 06/23/25 13:33 Oxygen Delivery Room Air 06/23/25 10:19 Lab Data Lab results reviewed: Yes I reviewed the patient's lab results. 06/23/25 10:40 06/23/25 10:40 Labs: Lab Results 06/23/25 06/23/25 06/23/25 Range/Units 10:28 10:40 11:07 WBC 8.1 (4.5-10.0) K/mm3 RBC 4.81 (4.2-5.4) M/mm3 Hgb 13.8 D (12.0-15.0) g/dL Hct 41.8 (37.0-47.0) % MCV 86.9 (80-100) fl MCH 28.7 (26-34) pg MCHC 33.0 (32-36) g/dl RDW 13.2 (11.5-14.5) % Plt Count 321 (150-375) k/mm3 MPV 9.9 (7.4-10.4) fl Immature Gran % (Auto) 0.4 (0-0.5) % Neut % (Auto) 37.0 L (45.5-73.1) % Lymph % (Auto) 52.3 H (18.3-44.2) % [place] % (Auto) 7.4 (2.6-8.5) % Eos % (Auto) 2.5 (0-4.4) % Baso % (Auto) 0.4 (0.2-1.2) % Lymph # (Auto) 4.26 H (0.9-3.2) K/mm3 [place] # (Auto) 0.6 (0.1-0.6) K/mm3 Eos # (Auto) 0.2 (0-0.3) K/mm3 Baso # (Auto) 0.0 (0.0-0.1) K/mm3 Abs Immat Gran (auto) 0.03 (0.00-0.031) K/mm3 Absolute Neuts (auto) 3.0 (1.3-6.7) K/mm3 Absolute Nucleated RBC 0.000 (0.0-0.012) K/mm3 Nucleated RBC % 0.0 (0.0-0.2) % Sodium 137 (137-145) mmol/L Potassium 3.9 (3.4-5.0) mmol/L Chloride 105 (98-107) mmol/L Carbon Dioxide 22 (22-30) mmol/L Anion Gap 10 (4-12) mmol/L BUN 15 D (7-17) mg/dL Creatinine 0.72 (0.7-1.0) mg/dL Estim Creat Clear Calc 96 ml/min Estimated GFR > 60 (59 - ) Glucose 91 (65-110) mg/dL Calcium 8.8 (8.4-10.2) mg/dL Total Bilirubin 0.4 (0.2-1.3) mg/dL AST 55 H (14-36) U/L ALT 55 H (6-35) U/L Alkaline Phosphatase 81 (38-126) U/L Total Protein 7.6 (6.3-8.2) g/dL Albumin 4.5 (3.5-5.1) g/dL Lipase 140 (23-300) U/L Urine Color Yellow (Yellow) Urine Appearance Clear (Clear) Urine pH 5.5 (5.0-9.0) Ur Specific [place] 1.022 (1.001-1.035) Urine Protein Trace (Negative) mg/dL Urine Glucose (UA) Negative (Negative) mg/dL Urine Ketones Negative (Negative) mg/dL Ur Blood (Man) 2+ H (Negative) Urine Nitrate Negative (Negative) Urine Bilirubin Negative (Negative) Urine Urobilinogen 1.0 (<2.0) mg/dL Leukocyte Esterase Rfl Negative (Negative) DREA/UL Urine RBC 6-10 H (0-2) /hpf Urine WBC 0-5 (0-3) /hpf Ur Squamous Epith Cells Occasional (Few) /hpf Urine Bacteria None seen /hpf Urine Casts 0-2 POC Urine HCG, Qual Negative Negative (Negative) Imaging Data Radiologist's impression: Impressions Abdomen Ultrasound 06/23/25 12:16 IMPRESSION: 1. No acute findings. 2. Hepatomegaly, with steatosis. Discharge Plan Discharge Clinical Impression: Intermittent right upper quadrant abdominal pain Patient Disposition: Home Condition: Stable Instructions: Antibiotic Form, Biliary Colic (ED), Low Fat Diet (ED) Additional Instructions: Follow a low-fat diet. Tylenol and ibuprofen for pain control. Have close follow-up with your primary care physician for additional outpatient gallbladder testing potentially including a HIDA scan. If you have any worsening symptoms then please call or return to the emergency department. Patient Language: Gambian Prescriptions: No Action sertraline 50 mg tablet 50 mg PO DAILY sertraline 50 mg tablet 50 mg PO DAILY Qty: 90 3RF Follow-up/Referrals: DEN,POLO [Other]
[2025-06-23 10:52] LABS: Add Urine Microscopic? YES; Appearance Urine Clear (Clear); Glucose Urine UA Negative (Negative); Leukocyte Esterase Ur Negative LEU/UL (Negative); Nitrate Urine Negative (Negative); Non Pathogenic Casts 0-2; Specific Grav Ur 1.022 (1.001-1.035)
[2025-06-23 11:09] LABS: BEDSIDEPREGUCG Negative (Negative)
[2025-06-23 11:10] LABS: Alanine Aminotransferase 55 U/L (6-35); Albumin Level 4.5 g/dL (3.5-5.1); Alkaline Phosphatase 81 U/L (38-126); Anion Gap 10 mmol/L (4-12); Aspartate Amino Transferase 55 U/L (14-36); Bilirubin,Total 0.4 mg/dL (0.2-1.3); Blood Urea Nitrogen 15 mg/dL (7-17); Calcium 8.8 mg/dL (8.4-10.2); Carbon Dioxide 22 mmol/L (22-30); Chloride 105 mmol/L (98-107); Estimated CRCL calculation 96 ml/min; Estimated Glomerular Filt Rate > 60; Glucose 91 mg/dL (65-110); Lipase 140 U/L (23-300); Potassium 3.9 mmol/L (3.4-5.0); Sodium 137 mmol/L (137-145); Total Protein 7.6 g/dL (6.3-8.2)
[2025-06-23 13:33] VITALS: BP 113/72; PULSE 54; RESP 16; O2SAT 100
== END 2025-06-23 15:03 | disposition home or self-care (01) ==
PROVIDERS: Emergency Medicine; Emergency Provider Emergency Medicine
DX: R10.11 Right upper quadrant pain (principal); F17.210 Nicotine dependence, cigarettes, uncomplicated
CPT/HCPCS: 36415; 76705; 80053; 81001; 81025; 83690; 85025; 99284